=== PATIENT | female | born 1940 | race Caucasian/White ===

== ENCOUNTER 2017-06-09 17:27 | Observation (INO) ==
[2017-06-09] MEDS ORDERED: Aspirin 81 MG TAB.CHEW PO ONE (17:38)
--- NOTE | 2017-06-09 17:55 | Emergency Department Note ---
Disposition Clinical Impression: Chest pain, rule out acute myocardial infarction, Chest pain with low risk of acute coronary syndrome Chest pain Qualifiers: Chest pain type: unspecified Qualified Code(s): R07.9 - Chest pain, unspecified Disposition: Admitted As Inpatient Condition: Good Referrals: NONE,PCP [Primary Care Provider] - Time of Disposition: 19:59 Chest Pain HPI - General Stated Complaint: CP// heart hx Time Seen by Provider: 06/09/17 17:28 Source: patient Mode of arrival: ambulatory Limitations: no limitations Vital Signs Reviewed: Yes Nursing Notes Reviewed: Yes - History of Present Illness HPI Narrative: Patient presents to the emergency room with complaint of chest pain and left- sided chest and her neck. Symptoms been present for 2-3 days. She denies any changes in symptoms. She did just have a catheterization completed a stent placed in August. She is concerned about it being her heart again. Denies any recent illnesses no fevers no chills no nausea vomiting or diarrhea. Denies chest pain shortness of breath headache or vision changes prior to the events recently. She is currently taking Xarelto and Plavix. She has a history of A. fib Onset (ago): day(s) Duration: intermittent Onset: during rest Pain Location: substernal, left chest Severity: none Severity scale (1-10): 0 Quality: aching Pain Radiation: neck Improves with: rest Worsens with: nothing Associated symptoms: Reports: nausea Treatments prior to arrival chest pain: aspirin - Related Data Home Medications Medication Instructions Recorded Confirmed Amlodipine Besylate 2.5 mg PO DAILY 05/03/16 08/20/16 Ascorbate Calcium [Vitamin C] 500 mg PO DAILY 05/03/16 08/20/16 Fluticasone Propionate Nasal 50 mcg NS DAILY 05/03/16 08/20/16 [Flonase] Multivit-Min/FA/Lycopen/Lutein 1 each PO DAILY 05/03/16 08/20/16 [Adults 50+ Multivitamin Tablet] [place]-3/Dha/Epa/Fish Oil [Fish Oil 1 each PO DAILY 05/03/16 08/20/16 1,000 mg Softgel] Vitamin E 200 unit PO DAILY 05/03/16 08/20/16 Apixaban [Eliquis] 5 mg PO BID 08/20/16 08/20/16 Metoprolol [Lopressor] 25 mg PO BID 08/20/16 08/20/16 Previous Rx's Medication Instructions Recorded Amoxicillin 500 mg PO BID #20 tablet 11/27/16 Benzonatate [Tessalon] 100 mg PO TID #30 capsule 11/27/16 Montelukast [Singulair] 10 mg PO DAILY #20 tablet 11/27/16 Allergies Allergy/AdvReac Type Severity Reaction Status Date / Time No Known Allergies Allergy Verified 08/19/16 20:01 All systems ED: reviewed and negative except as stated. Review of Systems: As Per HPI Constitutional: Denies: fever, chills, weakness Cardiovascular: Reports: chest pain. Denies: palpitations, dyspnea on exertion , orthopnea, edema Respiratory: Denies: cough, dyspnea, wheezes, hemoptysis Gastrointestinal: Denies: abdominal pain, nausea, vomiting, diarrhea, constipation Genitourinary: Denies: urgency, dysuria, frequency Musculoskeletal: Denies: back pain, neck pain Integumentary: Denies: rash Neurological: Denies: headache Psychiatric: Reports: anxiety Chest Pain PMH - Past Medical History Medical history: Reports: arthritis, atrial fibrillation, GERD, hyperlipidemia, hypertension, myocardial infarction, osteoporosis, syncope, other Surgical history: Reports: other (Anal fissure repair. Back surgery. Colonoscopy.) Psychiatric history: Reports: anxiety, depression DUMPER history: Reports: endometriosis - Social History Smoking Status: Never smoker Alcohol use: Reports: none Drug use: Reports: none Physical Exam - General Limitations: no limitations General appearance: alert, in no apparent distress - Neck Neck exam: Present: normal inspection, full ROM, trachea midline. Absent: tenderness, meningismus, lymphadenopathy - Chest Chest inspection: Present: normal inspection, symmetric chest wall rise. Absent : tenderness - Respiratory Respiratory exam: Present: normal lung sounds bilaterally. Absent: respiratory distress, wheezes, accessory muscle use - Cardiovascular Cardiovascular exam: Present: regular rate, normal rhythm, normal heart sounds - Abdominal Exam Abdominal exam: Present: soft, Non-Tender, normal bowel sounds. Absent: tenderness, distention, guarding, rebound, rigidity - Extremities Exam Extremities exam: Present: normal inspection, full ROM, normal capillary refill. Absent: tenderness - Back Exam Back exam: Present: normal inspection - Neurological Exam Neurological exam: Present: alert, oriented X3, CN II-XII intact, normal gait - Skin Skin exam: Present: warm, dry, intact, normal color Course Course Narrative: Patient seen and examined the time of arrival. See history of present illness. 77-year-old female presents emergency room with chest pain radiating up the left side of her neck. Symptoms of been present for approximately 2-3 days. Symptoms are completely resolved on presentation here to the emergency room. She has not taking anything to help with the symptoms. She takes her daily aspirin Plavix and Xarelto home. She has known A. fib. Patient denies any recent trauma illnesses, fevers chills nausea vomiting or diarrhea, headache or vision change. Her main complaint on presentation his chest discomfort radiating to the neck. She did have recent catheterization in August of last year. She had a stent placed at that time and an LAD lesion. Patient has not had any issues or consultation since that event. She presents here today with what she describes is similar presentation of symptoms from her previous heart attack. Patient otherwise is in no specific distress she denies pain at this time. She will be treated prophylactically with aspirin. And then have cardiac evaluation completed including EKG chest x-ray labs as well as liver function testing and lipase secondary to what she described as some intermittent nausea. She denies any vomiting or diarrhea at this point. Fluids to be provided as needed and nausea medication as needed. Disposition pending this treatment course. Physical exam is otherwise benign. Patient speaks in full sentences does not appear to be in any respiratory distress lungs are clear heart is regular abdomen soft nontender nondistended no guarding no rigidity. No peritoneal symptoms. She moves all 4 extremities without any complication she has good pulses she has good capillary refill. Patient is alert and oriented 3 showing no cranial nerve deficits and no signs of acute neurologic deficits at this time. Disposition pending treatment course. - Reevaluation(s) Reevaluation #1: Patient is still symptom-free here in the emergency room. She has not been provided any intervention. Again she has had the symptoms for 3 days at this time. She has had no other complaints or issues at home. She denies any chest pain at this point. Troponin is 0.00. EKG shows stable rhythm with no acute morphology changes. She does have left ventricular hypertrophy that is progressing from previous but otherwise no acute changes from 08/20/16. Patient is completely symptom free. Disposition pending evaluation. Will continue to monitor here as labs results. We will discuss admission for treatment course. Time: 19:06 Reevaluation #2: Patient is still chest pain free. She did describe another episode of discomfort in the side of her face. Repeat EKG ordered at this time. The laboratory workup and evaluation here is completely negative. Patient was placed onto the on-call senior it security analyst Dr. Wojciech Arango. We are waiting for him to call back to discuss the patient's presentation and give recommendations for admission for follow-up as an outpatient. Time: 19:30 Reevaluation #3: Patient was discussed with the senior it security analyst after N[facility]. His recommendation based on story and the symptom is to have the patient admitted. We will complete the treatment course and intervention this time. No other issues noted at this point. Patient is still chest pain-free. EKG to be completed prior to admission process. Hospitalist was paged at this time Time: 19:39 Additional Reevaluation(s): Patient discussed with the hospitalist Dr. mcdowell. I reviewed the presentation symptoms medical intervention and history in detail. No other recommendations for them at this time. Patient be brought in for trimming of troponins and cardiac evaluation tomorrow morning. Patient is otherwise stable Vital Signs Temperature 98.1 F 06/09/17 17:32 Pulse Rate 76 06/09/17 17:32 Respiratory Rate 18 06/09/17 17:32 Blood Pressure 176/85 06/09/17 17:32 O2 Sat by Pulse Oximetry 97 06/09/17 17:32 Temperature 98.1 F 06/09/17 17:32 Pulse Rate 68 06/09/17 18:36 Respiratory Rate 18 06/09/17 18:36 Blood Pressure 148/75 06/09/17 18:36 O2 Sat by Pulse Oximetry 97 06/09/17 18:36 Oxygen Delivery Oxygen Delivery Room Air Chest Pain - MDM Narrative Medical decision making narrative: chest pain - Medical Records Medical records reviewed: Yes I reviewed the patient's medical records. - Lab Data Lab results reviewed: Yes I reviewed the patient's lab results. Result diagrams: 06/09/17 18:00 06/09/17 18:00 Lab Results 06/09/17 06/09/17 06/09/17 Range/Units 18:00 18:00 18:00 WBC (4.3-11.1) K/mcL RBC (3.82-4.97) M/mcL Hgb (11.5-15.4) g/dL Hct (35.3-44.9) % MCV (83.0-100.0) fL MCH (28.0-33.3) pg MCHC (31.6-35.5) g/dL RDW (11.5-14.5) % Plt Count (140-400) K/mcL MPV (9.4-12.4) fL Immature Gran % (0-4) % Seg Neutrophils % % Lymphocytes % % Monocytes % % Eosinophils % % Basophils % % Neutrophils # (1.6-8.9) K/mcL Lymphocytes # (0.6-4.6) K/mcL Monocytes # (0.0-1.3) K/mcL Eosinophils # (0.0-0.6) K/mcL Basophils # (0.0-0.2) K/mcL PT 13.9 H (9.4-12.1) Seconds INR 1.3 APTT 36.5 H (26.0-36.0) Seconds Sodium (136-145) mEq/L Potassium (3.5-4.5) mEq/L Chloride (98-109) mEq/L Carbon Dioxide (19-29) mEq/L BUN (7-20) mg/dL Creatinine (0.57-1.11) mg/dL Est GFR ( Amer) (> 60) Est GFR (Non-Af Amer) (> 60) BUN/Creatinine Ratio (6-26) Glucose (70-99) mg/dL Calculated Osmolality (280-300) Calcium (8.6-10.8) mg/dL Total Bilirubin < 0.3 (0.2-1.2) mg/dL Direct Bilirubin 0.1 (0.0-0.5) mg/dL Indirect Bilirubin 0.2 (0.0-1.2) mg/dL AST 23 (5-34) Units/L ALT 23 (0-55) Units/L Alkaline Phosphatase 108 (38-126) Units/L Troponin I (0-0.03) ng/mL B-Natriuretic Peptide 69 (0-100) pg/mL Serum Total Protein 7.2 (6.0-8.3) g/dL Albumin 3.7 (3.5-5.0) g/dL Globulin 3.5 (2.4-3.5) g/dL Albumin/Globulin Ratio 1.1 (1.1-2.2) Lipase 31 (8-78) Units/L Urine Color (Yellow) Urine Clarity (Clear) Urine pH (5.0-8.0) pH Units Ur Specific [place] (1.010-1.025) Urine Protein (Neg-Trace) mg/dL Urine Glucose (UA) (Normal) mg/dL Urine Ketones (Negative) mg/dL Urine Blood (Negative) Urine Nitrite (Negative) Urine Bilirubin (Negative) Urine Urobilinogen (Normal) mg/dL Ur Leukocyte Esterase (Negative) Ur Culture Indicated? (NO) 06/09/17 06/09/17 06/09/17 Range/Units 18:00 18:00 18:00 WBC 5.7 (4.3-11.1) K/mcL RBC 4.86 (3.82-4.97) M/mcL Hgb 13.6 (11.5-15.4) g/dL Hct 42.7 (35.3-44.9) % MCV 87.9 (83.0-100.0) fL MCH 28.0 (28.0-33.3) pg MCHC 31.9 (31.6-35.5) g/dL RDW 13.1 (11.5-14.5) % Plt Count 184 (140-400) K/mcL MPV 11.3 (9.4-12.4) fL Immature Gran % 0.2 (0-4) % Seg Neutrophils % 65.3 % Lymphocytes % 21.9 % Monocytes % 9.8 % Eosinophils % 2.3 % Basophils % 0.5 % Neutrophils # 3.7 (1.6-8.9) K/mcL Lymphocytes # 1.3 (0.6-4.6) K/mcL Monocytes # 0.6 (0.0-1.3) K/mcL Eosinophils # 0.1 (0.0-0.6) K/mcL Basophils # 0.0 (0.0-0.2) K/mcL PT (9.4-12.1) Seconds INR APTT (26.0-36.0) Seconds Sodium 142 (136-145) mEq/L Potassium 3.5 (3.5-4.5) mEq/L Chloride 104 (98-109) mEq/L Carbon Dioxide 29 (19-29) mEq/L BUN 17 (7-20) mg/dL Creatinine 0.87 (0.57-1.11) mg/dL Est GFR ( Amer) > 60 (> 60) Est GFR (Non-Af Amer) > 60 (> 60) BUN/Creatinine Ratio 20 (6-26) Glucose 129 H (70-99) mg/dL Calculated Osmolality 297 (280-300) Calcium 9.4 (8.6-10.8) mg/dL Total Bilirubin (0.2-1.2) mg/dL Direct Bilirubin (0.0-0.5) mg/dL Indirect Bilirubin (0.0-1.2) mg/dL AST (5-34) Units/L ALT (0-55) Units/L Alkaline Phosphatase (38-126) Units/L Troponin I 0.00 (0-0.03) ng/mL B-Natriuretic Peptide (0-100) pg/mL Serum Total Protein (6.0-8.3) g/dL Albumin (3.5-5.0) g/dL Globulin (2.4-3.5) g/dL Albumin/Globulin Ratio (1.1-2.2) Lipase (8-78) Units/L Urine Color (Yellow) Urine Clarity (Clear) Urine pH (5.0-8.0) pH Units Ur Specific [place] (1.010-1.025) Urine Protein (Neg-Trace) mg/dL Urine Glucose (UA) (Normal) mg/dL Urine Ketones (Negative) mg/dL Urine Blood (Negative) Urine Nitrite (Negative) Urine Bilirubin (Negative) Urine Urobilinogen (Normal) mg/dL Ur Leukocyte Esterase (Negative) Ur Culture Indicated? (NO) 06/09/17 Range/Units 18:23 WBC (4.3-11.1) K/mcL RBC (3.82-4.97) M/mcL Hgb (11.5-15.4) g/dL Hct (35.3-44.9) % MCV (83.0-100.0) fL MCH (28.0-33.3) pg MCHC (31.6-35.5) g/dL RDW (11.5-14.5) % Plt Count (140-400) K/mcL MPV (9.4-12.4) fL Immature Gran % (0-4) % Seg Neutrophils % % Lymphocytes % % Monocytes % % Eosinophils % % Basophils % % Neutrophils # (1.6-8.9) K/mcL Lymphocytes # (0.6-4.6) K/mcL Monocytes # (0.0-1.3) K/mcL Eosinophils # (0.0-0.6) K/mcL Basophils # (0.0-0.2) K/mcL PT (9.4-12.1) Seconds INR APTT (26.0-36.0) Seconds Sodium (136-145) mEq/L Potassium (3.5-4.5) mEq/L Chloride (98-109) mEq/L Carbon Dioxide (19-29) mEq/L BUN (7-20) mg/dL Creatinine (0.57-1.11) mg/dL Est GFR ( Amer) (> 60) Est GFR (Non-Af Amer) (> 60) BUN/Creatinine Ratio (6-26) Glucose (70-99) mg/dL Calculated Osmolality (280-300) Calcium (8.6-10.8) mg/dL Total Bilirubin (0.2-1.2) mg/dL Direct Bilirubin (0.0-0.5) mg/dL Indirect Bilirubin (0.0-1.2) mg/dL AST (5-34) Units/L ALT (0-55) Units/L Alkaline Phosphatase (38-126) Units/L Troponin I (0-0.03) ng/mL B-Natriuretic Peptide (0-100) pg/mL Serum Total Protein (6.0-8.3) g/dL Albumin (3.5-5.0) g/dL Globulin (2.4-3.5) g/dL Albumin/Globulin Ratio (1.1-2.2) Lipase (8-78) Units/L Urine Color Yellow (Yellow) Urine Clarity Clear (Clear) Urine pH 6.5 (5.0-8.0) pH Units Ur Specific [place] 1.010 (1.010-1.025) Urine Protein Negative (Neg-Trace) mg/dL Urine Glucose (UA) Normal (Normal) mg/dL Urine Ketones Negative (Negative) mg/dL Urine Blood Negative (Negative) Urine Nitrite Negative (Negative) Urine Bilirubin Negative (Negative) Urine Urobilinogen Normal (Normal) mg/dL Ur Leukocyte Esterase Negative (Negative) Ur Culture Indicated? NO (NO) - Radiology Data Radiology results reviewed: Yes I reviewed the patient's radiology results. cxr is neg for infection - EKG Data EKG attestation: Yes I reviewed and interpreted this EKG. EKG shows normal: sinus rhythm, intervals, QRS complexes, ST-T waves Rate: normal [place]/QRS: left axis deviation Voltage: c/w LVH When compared to previous EKG there are: no significant changes Interpretation: no acute changes, unchanged when compared to prior tracing (date ) (08/20/16), other (Repeat EKG shows identical morphology. No changes at this time) Heart Score - Score History: Moderately Suspicious EKG: Normal Age: Greater than 65 Risk Factors: Equal/Greater than 3 risk factor or history of atherosclerotic disease Troponin: Less than normal limit HEART Score Total: 5
[2017-06-09 18:29] LABS: Basophils % 0.5 %; Eosinophils # 0.1 K/mcL (0.0-0.6); Eosinophils % 2.3 %; Hematocrit 42.7 % (35.3-44.9); Hemoglobin 13.6 g/dL (11.5-15.4); Immature Granulocytes % 0.2 % (0-4); Lymphocytes # 1.3 K/mcL (0.6-4.6); Lymphocytes % 21.9 %; Mean Corpuscular HGB Conc 31.9 g/dL (31.6-35.5); Mean Corpuscular Volume 87.9 fL (83.0-100.0); Mean Platelet Volume 11.3 fL (9.4-12.4); Monocytes # 0.6 K/mcL (0.0-1.3); Monocytes % 9.8 %; Neutrophils # 3.7 K/mcL (1.6-8.9); Platelet Count 184 K/mcL (140-400); Red Blood Count 4.86 M/mcL (3.82-4.97); Red Cell Distribution Width 13.1 % (11.5-14.5); Segmented Neutrophils % 65.3 %
[2017-06-09 18:29] LABS: Bilirubin,Urine Negative (Negative); Blood,Urine Negative (Negative); Clarity,Urine Clear (Clear); Color,Urine Yellow (Yellow); Glucose,Urine (UA) Normal (Normal); Ketones,Urine Negative (Negative); Leukocyte Esterase,Urine Negative (Negative); Nitrite,Urine Negative (Negative); PH,Urine 6.5 pH Units (5.0-8.0); Protein,Urine Negative (Neg-Trace); Urobilinogen,Urine Normal (Normal)
[2017-06-09 18:30] LABS: INR 1.3; Prothrombin Time 13.9 Seconds (9.4-12.1)
[2017-06-09 18:33] LABS: Activated Partial Thrombo Time 36.5 Seconds (26.0-36.0)
[2017-06-09 18:43] LABS: Alanine Aminotransferase 23 Units/L (0-55); Albumin 3.7 g/dL (3.5-5.0); Albumin/Globulin Ratio 1.1 (1.1-2.2); Alkaline Phosphatase 108 Units/L (38-126); Aspartate Amino Transferase 23 Units/L (5-34); Bilirubin,Direct 0.1 mg/dL (0.0-0.5); Bilirubin,Indirect 0.2 mg/dL (0.0-1.2); Bilirubin,Total < 0.3 mg/dL (0.2-1.2); Globulin 3.5 g/dL (2.4-3.5); Lipase 31 Units/L (8-78); Total Protein 7.2 g/dL (6.0-8.3)
[2017-06-09 18:55] LABS: BUN/Creatinine Ratio 20 (6-26); Blood Urea Nitrogen 17 mg/dL (7-20); Calcium 9.4 mg/dL (8.6-10.8); Carbon Dioxide 29 mEq/L (19-29); Chloride 104 mEq/L (98-109); Glucose 129 mg/dL (70-99); Osmolality,Calculated 297 (280-300); Potassium 3.5 mEq/L (3.5-4.5); Sodium 142 mEq/L (136-145); eGFR For African Americans > 60 (> 60); eGFR For Non-African Americans > 60 (> 60)
[2017-06-09] MEDS ORDERED: Nitroglycerin 0.4 MG TAB.SUBL SL PRN (21:05)
[2017-06-09] MEDS ORDERED: Ipratropium/Albuterol Neb 3 ML IH PRN (21:05)
[2017-06-09] MEDS ORDERED: Ondansetron 4 MG/2 ML VIAL IVP PRN (21:07)
[2017-06-09] MEDS ORDERED: Acetaminophen 325 MG TABLET PO PRN (21:07)
[2017-06-09] MEDS ORDERED: *HR* Morphine 2 MG/ML SYRINGE IVP PRN (21:07)
[2017-06-09] MEDS ORDERED: Naloxone 0.4 MG/ML INJ IVP PRN (21:07)
--- NOTE | 2017-06-09 21:13 | Internal Med History&Physical ---
Date of Encounter: 06/09/17 Time of Encounter: 21:11 Assessment and Plan (1) Chest pain Current visit: Yes Status: Acute With history of CAD status post stents Continue aspirin, Plavix, metoprolol, statin, nitroglycerin as needed Order limited echocardiogram and schedule a stress test in the morning, follow troponins, telemetry Cardiology was consulted by the ER physician Check lipid panel Omeprazole for GI prophylaxis and Xarelto for DVT prophylaxis, the patient will be admitted for observation. Full code. Time spent this admission 40 minutes Qualifiers: Chest pain type: precordial pain Qualified Code(s): R07.2 - Precordial pain (2) Paroxysmal atrial fibrillation Current visit: No Status: Acute Continue Xarelto and metoprolol (3) Dyslipidemia Current visit: No Status: Chronic (4) Hypertension Current visit: No Status: Chronic Accelerated hypertension, may use hydralazine IV as needed Qualifiers: Hypertension type: essential hypertension Qualified Code(s): I10 - Essential (primary) hypertension Internal Medicine - H&P: HPI Chief complaint: Chest pain Admitted From: Emergency Dept History of present illness: Ms. Pena is a 77 year old female with a past medical history of hypertension, hyperlipidemia, CAD status post drug-eluting stent in the mid LAD back in August 2016, paroxysmal atrial fibrillation used to be on Eliquis but is currently on Xarelto. The patient came complaining of left sided chest pain that started 3 days ago and got worse earlier today at 4:30 PM and lasted for about one half hour, the patient is a still having some discomfort for about 4 out of 10 in intensity at times. Has some nausea, became diaphoretic and says that this pain was very similar to the prior event that she had in August. Troponin and EKG did not show any evidence of ischemia, chest x-ray is normal. Dr. Arango was called by the ER physician, admission was requested. Patient denies any other complaints at the moment Past Med Surg Social Fam HX - Past Medical History Medical history: arthritis, atrial fibrillation (Paroxysmal currently on Xarelto ), coronary artery disease (Status post a drug-eluting stent in the mid LAD August 2016), GERD, hyperlipidemia, hypertension, myocardial infarction, osteoporosis, syncope, other (Osteoporosis, endometriosis, spinal stenosis, mild diastolic dysfunction last echocardiogram from December 2016 shows an ejection fraction of 60%) Psychiatric history: anxiety, depression - Past Surgical History Surgical History: other (Anal fissure repair. Back surgery. Colonoscopy. Cardiac catheterization) - Social History Smoking Status: Never smoker Smokeless Tobacco Status: No Alcohol use: none Drug use: none - Family History Mother Living Status: Hx Family Cardiac Disorders: Yes Father Living Status: Hx Family Cardiac Disorders: Yes - Additional Family History Additional family history: Mother with cardiomegaly, father with CHF and alcoholism Internal Medicine - H&P: Meds Amlodipine Besylate 2.5 mg PO DAILY 05/03/16 [History] Ascorbate Calcium [Vitamin C] 500 mg PO DAILY 05/03/16 [History] Fluticasone Propionate Nasal [Flonase] 50 mcg NS DAILY 05/03/16 [History] Multivit-Min/FA/Lycopen/Lutein [Adults 50+ Multivitamin Tablet] 1 each PO DAILY 05/03/16 [History] [place]-3/Dha/Epa/Fish Oil [Fish Oil 1,000 mg Softgel] 1 each PO DAILY 05/03/16 [ History] Vitamin E 200 unit PO DAILY 05/03/16 [History] Apixaban [Eliquis] 5 mg PO BID 08/20/16 [History] Metoprolol [Lopressor] 25 mg PO BID 08/20/16 [History] Amoxicillin 500 mg PO BID #20 tablet 11/27/16 [Rx] Benzonatate [Tessalon] 100 mg PO TID #30 capsule 11/27/16 [Rx] Montelukast [Singulair] 10 mg PO DAILY #20 tablet 11/27/16 [Rx] Allergies No Known Allergies Allergy (Verified 08/19/16 20:01) All Systems PM: A 10-system review of systems was performed and is negative for pertinent findings except as documented above in the HPI. Review of systems: No shortness of breath, no dysuria. Other systems out the 10 reviewed are negative - Constitutional Vitals: Temp Pulse Resp BP Pulse Ox 98.1 F 68 16 154/81 97 06/09/17 17:32 06/09/17 18:36 06/09/17 20:37 06/09/17 20:37 06/09/17 18:36 General appearance: Present: A&O X 3 - Head Head exam: Present: atraumatic, normocephalic - Eye Eye exam: Present: PERRL, conjuntiva pink, sclera anicteric Pupils: Present: PERRL - Neck Neck exam general surgery: Present: supple, trachea midline. Absent: lymphadenopathy - Respiratory Respiratory exam: Present: CTAB. Absent: accessory muscle use, rales, rhonchi, wheezes - Cardiovascular Cardiovascular exam: Present: RRR, +S1, +S2. Absent: diastolic murmur, gallop, rubs, systolic murmur - GI/Abdominal GI/Abdominal exam: Present: normal bowel sounds, soft, no peritoneal signs. Absent: distended, tenderness - Extremities Exam Extremities exam: Present: warm, radial pulses palpable and symetrical. Absent : calf tenderness, cyanotic, pedal edema - Neurological Exam Neurological exam: Present: CN II-XII intact, oriented X3, no focal deficits. Absent: pronater drift, facial droop, speech deficit - Skin Skin exam: Present: dry, intact Internal Med - H&P Results - Labs CBC & Chem 7: 06/09/17 18:00 06/09/17 18:00
[2017-06-09] MEDS ORDERED: 0.9 % Sodium Chloride 1,000 ML IVC SCH (21:15)
[2017-06-09] MEDS ORDERED: APIXABAN 5 MG TABLET PO SCH (21:15)
[2017-06-09] MEDS: Aspirin Enteric Coated 81 MG Tablet PO SCH (23:11)
[2017-06-09] MEDS ORDERED: Melatonin 3 MG TABLET PO SCH (23:55)
[2017-06-10 04:10] LABS: Hematocrit 42.3 % (35.3-44.9); Hemoglobin 13.3 g/dL (11.5-15.4); Mean Corpuscular HGB Conc 31.4 g/dL (31.6-35.5); Mean Corpuscular Hemoglobin 27.8 pg (28.0-33.3); Mean Corpuscular Volume 88.3 fL (83.0-100.0); Mean Platelet Volume 11.5 fL (9.4-12.4); Platelet Count 174 K/mcL (140-400); Red Blood Count 4.79 M/mcL (3.82-4.97); Red Cell Distribution Width 13.2 % (11.5-14.5)
[2017-06-10 04:34] LABS: BUN/Creatinine Ratio 22 (6-26); Blood Urea Nitrogen 18 mg/dL (7-20); Calcium 9.4 mg/dL (8.6-10.8); Carbon Dioxide 31 mEq/L (19-29); Chloride 107 mEq/L (98-109); Chol/HDL Ratio 4.2 (0-4.9); Cholesterol 162 mg/dL (< 200); Glucose 100 mg/dL (70-99); HDL Cholesterol 39 mg/dL (40-59); LDL Cholesterol,Calculated 99 mg/dL (0-99); Osmolality,Calculated 304 (280-300); Potassium 3.9 mEq/L (3.5-4.5); Sodium 146 mEq/L (136-145); Triglycerides 119 mg/dL (< 150); eGFR For African Americans > 60 (> 60); eGFR For Non-African Americans > 60 (> 60)
[2017-06-10] MEDS ORDERED: Regadenoson 0.4 MG/5 ML SYRINGE IVP ONE (06:22)
[2017-06-10] MEDS: Aspirin Enteric Coated 81 MG Tablet PO SCH (09:43)
[2017-06-10 11:11] VITALS: BP 146/70
--- NOTE | 2017-06-10 12:22 | Discharge Summary ---
Date of Encounter: 06/10/17 Time of Encounter: 09:50 - Discharge Diagnosis (1) Chest pain Priority: Primary Status: Acute Comments: Pt denies chest pain today, other than with stress test. Chest pain had resolved by the time she arrived back at the floor. Pt initally reported nausea and diaphoresis, these have resolved. Chest xray was negative, pain is not reproducible with movement or palpation. Troponins were negative. EKG NSR, rate 61, NV 196, QRS 103, QTc 414. No ST elevation. Stress test negative, echo shows LVEF preserved. Pt had LHC with CECILIA in mid LAD in August,. She is currently on Xarelto and ASA. Chest xray negative. Pt will follow up with cardiology in clinic. Qualifiers: Chest pain type: unspecified Qualified Code(s): R07.9 - Chest pain, unspecified (2) Hypertension Priority: Secondary Status: Chronic Comments: Chronic. Continue home medications. Qualifiers: Hypertension type: essential hypertension Qualified Code(s): I10 - Essential (primary) hypertension (3) PAF (paroxysmal atrial fibrillation) Priority: Secondary Status: Acute Comments: EKG sinus rhythm. Continue Xarelto and Metoprolol. (4) DVT prophylaxis Priority: Secondary Status: Acute Comments: Pt on Xarelto. - Discharge Medications Home Medications: Amlodipine Besylate 2.5 mg PO HS 05/03/16 [History] Ascorbate Calcium [Vitamin C] 500 mg PO DAILY 05/03/16 [History] Fluticasone Propionate Nasal [Flonase] 50 mcg NS DAILY 05/03/16 [History] Multivit-Min/FA/Lycopen/Lutein [Adults 50+ Multivitamin Tablet] 1 each PO DAILY 05/03/16 [History] [place]-3/Dha/Epa/Fish Oil [Fish Oil 1,000 mg Softgel] 1 each PO DAILY 05/03/16 [ History] Vitamin E 200 unit PO DAILY 05/03/16 [History] Metoprolol [Lopressor] 25 mg PO BID 08/20/16 [History] Aspirin [Lo-Dose Aspirin EC] 81 mg PO DAILY 06/09/17 [History] Clopidogrel [Plavix] 75 mg PO DAILY 06/09/17 [History] Melatonin [Melatin] 3 mg PO HS 06/09/17 [History] Rivaroxaban [Xarelto] 20 mg PO DAILY 06/09/17 [History] Atorvastatin Calcium [Lipitor] 20 mg PO DAILY 06/10/17 [History] Allergies/Adverse Reactions: Allergies No Known Allergies Allergy (Verified 08/19/16 20:01) Procedures/tests Complete & Pending: Procedures Performed prior 72 hours Category Date Time Status NM lucia perf SPECT multi [NM] Routine Exams 06/09/17 06:14 Taken EV limited echocardiogram Routine Y 06/10/17 08:30 Completed SP pharm nuclear stress Routine Y 06/09/17 21:07 Completed Date of admission: 06/09/17 20:05 Primary care physician: Kaylee Katz Discharging clinician: Catrachita Tolliver Anticipated date of discharge: 06/10/17 - Patient Status Disposition: Home, Self-Care Condition: Good Functional capacity at discharge: independent ambulation Overall status at discharge: patient is back to baseline - Discharge Instructions Follow Up With: Davi Lyon DO [Primary Care Provider] - Forms: ED Satisfaction Letter Additional Instructions: Follow up with your PCP in the next week to 10 days for a follow up visit. If your chest pain returns, return to the ER immediately. Resume your normal home medications Follow up with cardiology in the office as scheduled. - Diet and Activity Activity: increase activity as tolerated Diet: advance to your usual diet Hospital course: Ms. Pena is a 77 year old female straight dyslipidemia, hypertension, LHC with CECILIA in August,, paroxysmal A. fib. Patient presented to the emergency department with left-sided chest pain that started 3 days prior to arrival became worse immediately prior to admission and lasted for about 30 minutes. She was still having some chest discomfort at time of admission, as well as some nausea and diaphoresis. Patient did have some chest pain during the beginning of the stress test, she did not have any chest pain by the time she arrived back to the room. She does not have chest pain currently. Physical exam is unremarkable. Chest xray is negative for any acute processes, troponins were negative x 3, pharmacologic stress was negative for ischemia or infarct with a gaited EF of greater than 70%. Limited echo done today also shows LVEF of 65% with normal LV chamber size and function. All wall segments showed normal motion. Patient had a left heart catheter in August, a drug-eluting stent was placed in mid LAD. Patient will continue her Zaroxolyn aspirin at home. Her EKG showed normal sinus rhythm without ST changes. She has a history of paroxysmal A. fib and will continue metoprolol. Her vital signs have been within normal limits since returned to the unit, her labs are within normal limits. She denies chest pain or any complaints. She denies need for medication refills. Patient is stable and appropriate for discharge. - Time Spent with Patient Total time spent providing and/or coordinating discharge services: Less than 30 minutes - Constitutional Vitals: Temp Pulse Resp BP Pulse Ox 97.6 F 67 14 146/70 98 06/10/17 11:11 06/10/17 11:11 06/10/17 11:11 06/10/17 11:11 06/10/17 11:11 General appearance: Present: cooperative, A&O X 3, pleasant, no acute distress, answers questions appropriately - Head Head exam: Present: normal inspection - Eye Eye exam: Present: normal appearance, conjuntiva pink - ENT ENT exam: Present: mucous membranes moist, normal exam, normal external ear exam - Neck Neck exam general surgery: Present: normal inspection. Absent: lymphadenopathy , tenderness - Respiratory Respiratory exam: Present: CTAB. Absent: chest wall tenderness, rales, respiratory distress, rhonchi, stridor, wheezes - Cardiovascular Cardiovascular exam: Present: JVD, +S1, +S2. Absent: clicks, diastolic murmur, gallop, systolic murmur - GI/Abdominal GI/Abdominal exam: Present: normal bowel sounds, soft. Absent: distended, hepatomegaly, tenderness - Extremities Exam Extremities exam: Present: normal inspection, warm, radial pulses palpable and symetrical. Absent: calf tenderness, pedal edema, tenderness - Neurological Exam Neurological exam: Present: alert, oriented X3, strengths equal and symetr throughout. Absent: facial droop, speech deficit - Skin Skin exam: Present: dry, intact, normal color, warm. Absent: rash, urticaria
--- NOTE | 2017-06-10 15:24 | Electrocardiograph Report ---
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
--- NOTE | 2017-06-10 15:28 | Nuclear Medicine Stress Report ---
Low Level Regadenoson Name: Shauna Pena Date of Study: 06/10/2017 Date: 1940 Ht: 64.0 in Medical Record#: [id number] Age: 77 Wt: 157.0 lb Gender: Female Order #: [id number] Location: [facility] Room: [facility] Supervising Provider: Neftali Collins CNP Reading Physician: Rex Us DO, MELCHOR, BIR TATUM Ordering Physician: Catrachita Tolliver CNP Primary Care Physician: Davi Lyon DO Stress Technologist: Jennifer Stack, JOB RECRUITER, CPFT Technical Agronomist: Anderson Jacobson Indications: Coronary Artery Disease, Chest Pain Impression: Low level exercise/ pharmacologic stress ECG is negative for ischemia at level of heart rate achieved. Chest discomfort reported during stress. Gated EF > 70%. Perfusion imaging was negative for ischemia or infarct. History: Hypertension Prior PCI Stress Test Summary: Stress Test Type: Low level pharmacologic Regadenoson 0.4mg/5ml given IV Baseline Information: Initial Heart Rate: 65 Blood Pressure: 144/68 Stress Information: Stress Time: 4 min 00 sec Test Terminated Due to (primary): As per protocol Maximum Blood Pressure: 148/68 Maximum Heart Rate: 116 Percent Maximum Heart Rate Achieved: 80 Double Product: 17,168 METS Reached: 2.1 Symptoms: Chest pain Nuclear Summary: SPECT myocardial perfusion imaging using Tc99m Sestamibi given intravenously was performed at rest and following cardiac stress testing. The resting images were obtained following initial dose of 10.7 mCi. Following stress an additional dose of 33.6 mCi was given at peak exercise or 30 seconds post regadenoson infusion. Medication Given: Time Medication Dose Units Route Findings: Stress Note * Resting ECG demonstrated normal sinus rhythm. * Brief episode of SVT noted while at rest. * Low level exercise/ pharmacologic stress ECG is negative for ischemia at level of heart rate achieved. * Occasional PVCs noted during stress. * Chest discomfort reported during stress. * Normal hemodynamic responses to low level exercise plus pharmacologic stress. Study Quality * Study quality is good. Gated EF > 70% * Gated EF > 70%. Left Ventricle * The left ventricle is not dilated. LVEDV = 48 mL. NORMALS * Normal wall motion. * Normal Segmental Perfusion in rest. * Normal segmental perfusion in stress. TID * No evidence of transient ischemic dilatation. TID ratio = 1.00. Lung Uptake * There is no evidence of increase lung uptake. Updated by Rex Us DO, FACBlaine, RC, BRI on 06/10/2017 10:56:34 AM electronically signed on 06/10/2017 10:57:54 AM with status of Final
[2017-06-10] MEDS ORDERED: *HR* Rivaroxaban 10 MG TABLET PO SCH (17:00)
--- NOTE | 2017-06-10 20:43 | Electrocardiograph Report ---
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
[2017-06-10] MEDS ORDERED: Melatonin 3 MG TABLET PO SCH (21:00)
== END 2017-06-10 13:50 | disposition home or self-care (01) ==
LOC: 3BNU 17:27 → EMEROO 17:27 → 3BNU 20:30
PROVIDERS: ADMIT Hospitalist; ATTEND Registered Nurse

== ENCOUNTER 2017-11-26 13:54 | Observation (INO) ==
[2017-11-26 14:48] LABS: Basophils % 0.5 %; Eosinophils # 0.1 K/mcL (0.0-0.6); Eosinophils % 1.3 %; Hematocrit 43.1 % (35.3-44.9); Hemoglobin 14.2 g/dL (11.5-15.4); Immature Granulocytes % 0.3 % (0-4); Lymphocytes # 1.4 K/mcL (0.6-4.6); Lymphocytes % 18.5 %; Mean Corpuscular HGB Conc 32.9 g/dL (31.6-35.5); Mean Corpuscular Hemoglobin 29.2 pg (28.0-33.3); Mean Corpuscular Volume 88.5 fL (83.0-100.0); Mean Platelet Volume 10.9 fL (9.4-12.4); Monocytes # 0.7 K/mcL (0.0-1.3); Neutrophils # 5.3 K/mcL (1.6-8.9); Platelet Count 199 K/mcL (140-400); Red Blood Count 4.87 M/mcL (3.82-4.97); Red Cell Distribution Width 13.2 % (11.5-14.5); Segmented Neutrophils % 70.4 %
[2017-11-26 14:55] LABS: INR 1.2; Prothrombin Time 13.5 Seconds (9.4-12.1)
[2017-11-26 14:58] LABS: Activated Partial Thrombo Time 39.2 Seconds (26.0-36.0)
[2017-11-26 15:14] LABS: BUN/Creatinine Ratio 27 (6-26); Blood Urea Nitrogen 22 mg/dL (8-23); Calcium 9.6 mg/dL (8.6-10.3); Carbon Dioxide 32 mEq/L (23-29); Chloride 106 mEq/L (98-107); Glucose 116 mg/dL (70-105); Osmolality,Calculated 298 (280-300); Potassium 3.7 mEq/L (3.5-5.1); Sodium 142 mEq/L (136-145); eGFR For African Americans > 60 (> 60); eGFR For Non-African Americans > 60 (> 60)
[2017-11-26] MEDS ORDERED: Aspirin 81 MG TAB.CHEW PO STA (16:48)
[2017-11-26] MEDS ORDERED: Nitroglycerin 0.4 MG TAB.SUBL SL PRN (18:23)
--- NOTE | 2017-11-26 18:46 | Emergency Department Note ---
Disposition Clinical Impression: Chest pain Qualifiers: Chest pain type: unspecified Qualified Code(s): R07.9 - Chest pain, unspecified Disposition: Admitted As Inpatient Condition: Good Chest Pain HPI - General Chief Complaint: ED Chest Pain Stated Complaint: CP/Left shoulder pain for a couple days Time Seen by Provider: 11/26/17 16:36 Source: patient Limitations: no limitations Vital Signs Reviewed: Yes Nursing Notes Reviewed: Yes - History of Present Illness HPI Narrative: Patient presents today for evaluation of chest pain and left arm pain. Patient has a previous history of [place] requiring stent placement in July 2016. The patient states that this pain started several days ago and was associated with what she describes as a stressful event with her friends. Patient is unwilling to go into further details. Patient states that she thought it would pass secondary to coming on with this acute stressor however the chest pain has continued to be present in the middle of her chest worse with exertion as she walks up steps to put away her Laura decorations. Pain radiates to left arm. Patient's symptoms are similar but not as severe as her previous [place]. The patient has had some associated nausea but no diaphoresis. Patient states that since she has been resting in bed most of her pain has gone away. She is mildly hypertensive and will receive a sublingual nitroglycerin as well as aspirin within the emergency department. Patient will need admitted for further evaluation as she does have EKG changes with T-wave changes in the lead 1 and aVL. Severity scale (1-10): 3 - Related Data Home Medications Medication Instructions Recorded Confirmed Amlodipine Besylate 2.5 mg PO HS 05/03/16 11/26/17 Ascorbate Calcium [Vitamin C] 500 mg PO DAILY 05/03/16 11/26/17 Fluticasone Propionate Nasal 50 mcg NS DAILY PRN 05/03/16 11/26/17 [Flonase] Multivit-Min/FA/Lycopen/Lutein 1 each PO DAILY 05/03/16 11/26/17 [Adults 50+ Multivitamin Tablet] [place]-3/Dha/Epa/Fish Oil [Fish Oil 1 each PO DAILY 05/03/16 11/26/17 1,000 mg Softgel] Vitamin E 200 unit PO DAILY 05/03/16 11/26/17 Metoprolol [Lopressor] 25 mg PO BID 08/20/16 11/26/17 Aspirin [Lo-Dose Aspirin EC] 81 mg PO QPM 06/09/17 11/26/17 Melatonin [Melatin] 3 mg PO HS 06/09/17 11/26/17 Rivaroxaban [Xarelto] 20 mg PO DAILY 06/09/17 11/26/17 Atorvastatin Calcium [Lipitor] 20 mg PO MOWEFR 06/10/17 11/26/17 Biotin 1 mg PO DAILY 11/26/17 11/26/17 Cholecalciferol (Vitamin D3) 2,000 unit PO DAILY 11/26/17 11/26/17 [Vitamin D] Allergies Allergy/AdvReac Type Severity Reaction Status Date / Time No Known Allergies Allergy Verified 08/19/16 20:01 Review of Systems: CONSTITUTIONAL: No weight loss, fever, chills, weakness or fatigue. HEENT: Eyes: No visual changes. Ears, Nose, Throat: No hearing loss, difficulty talking or unable to swallow. SKIN: No rash or itching. CARDIOVASCULAR: Chest pain RESPIRATORY: No shortness of breath, cough or sputum. GASTROINTESTINAL: Nausea No anorexia, vomiting or diarrhea. No abdominal pain or blood. GENITOURINARY: No burning on urination or hematuria. NEUROLOGICAL: No headache, dizziness, syncope, paralysis, ataxia, numbness or tingling in the extremities. No change in bowel or bladder control. MUSCULOSKELETAL: No muscle pain, back pain, joint pain or stiffness. 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 - Social History Smoking Status: Never smoker Alcohol use: Reports: none Drug use: Reports: none Physical Exam General: Well appearing, nontoxic, no acute distress Head: Normocephalic Atraumatic Eyes: PERRL, EOMI ENT: Airway patent, no stridor Neck: supple, no meningismus Chest: Lungs clear to auscultation bilateral Cardiac: Regular rate and rhythm, no murmurs, rubs or gallops Abdomen: soft, nontender, nondistended; no guarding, rebound, or tenderness to percussion Musculoskeletal: Calves symmetric, nontender, no palpable cord Skin: No rash, normal skin tone Neuro: Alert and Oriented to person, place, and time; No focal deficit, CN 2-12 symmetric and intact - General Limitations: no limitations General appearance: alert, in no apparent distress Course - Consultations Consultation #1: Discussed with hospitalist; Mariaelena. Patient accepted for admission. Vital Signs Temperature 98.0 F 11/26/17 13:55 Pulse Rate 82 11/26/17 13:55 Respiratory Rate 16 11/26/17 13:55 Blood Pressure 159/83 11/26/17 13:55 O2 Sat by Pulse Oximetry 100 11/26/17 13:55 Temperature 98.0 F 11/26/17 13:55 Pulse Rate 93 11/26/17 19:04 Respiratory Rate 17 11/26/17 19:04 Blood Pressure 172/87 11/26/17 19:04 O2 Sat by Pulse Oximetry 95 11/26/17 19:04 Oxygen Delivery Oxygen Delivery Room Air Chest Pain - Medical Records Medical records reviewed: Yes I reviewed the patient's medical records. - Lab Data Lab results reviewed: Yes I reviewed the patient's lab results. Result diagrams: 11/26/17 14:39 11/26/17 14:39 Lab Results 11/26/17 11/26/17 11/26/17 Range/Units 14:39 14:39 14:39 WBC 7.5 (4.3-11.1) K/mcL RBC 4.87 (3.82-4.97) M/mcL Hgb 14.2 (11.5-15.4) g/dL Hct 43.1 (35.3-44.9) % MCV 88.5 (83.0-100.0) fL MCH 29.2 (28.0-33.3) pg MCHC 32.9 (31.6-35.5) g/dL RDW 13.2 (11.5-14.5) % Plt Count 199 (140-400) K/mcL MPV 10.9 (9.4-12.4) fL Immature Gran % 0.3 (0-4) % Seg Neutrophils % 70.4 % Lymphocytes % 18.5 % Monocytes % 9.0 % Eosinophils % 1.3 % Basophils % 0.5 % Neutrophils # 5.3 (1.6-8.9) K/mcL Lymphocytes # 1.4 (0.6-4.6) K/mcL Monocytes # 0.7 (0.0-1.3) K/mcL Eosinophils # 0.1 (0.0-0.6) K/mcL Basophils # 0.0 (0.0-0.2) K/mcL PT 13.5 H (9.4-12.1) Seconds INR 1.2 APTT 39.2 H (26.0-36.0) Seconds Sodium 142 (136-145) mEq/L Potassium 3.7 (3.5-5.1) mEq/L Chloride 106 (98-107) mEq/L Carbon Dioxide 32 H (23-29) mEq/L BUN 22 (8-23) mg/dL Creatinine 0.82 (0.60-1.20) mg/dL Est GFR ( Amer) > 60 (> 60) Est GFR (Non-Af Amer) > 60 (> 60) BUN/Creatinine Ratio 27 H (6-26) Glucose 116 H (70-105) mg/dL Calculated Osmolality 298 (280-300) Calcium 9.6 (8.6-10.3) mg/dL Troponin I (< 0.04) ng/mL 11/26/17 Range/Units 14:39 WBC (4.3-11.1) K/mcL RBC (3.82-4.97) M/mcL Hgb (11.5-15.4) g/dL Hct (35.3-44.9) % MCV (83.0-100.0) fL MCH (28.0-33.3) pg MCHC (31.6-35.5) g/dL RDW (11.5-14.5) % Plt Count (140-400) K/mcL MPV (9.4-12.4) fL Immature Gran % (0-4) % Seg Neutrophils % % Lymphocytes % % Monocytes % % Eosinophils % % Basophils % % Neutrophils # (1.6-8.9) K/mcL Lymphocytes # (0.6-4.6) K/mcL Monocytes # (0.0-1.3) K/mcL Eosinophils # (0.0-0.6) K/mcL Basophils # (0.0-0.2) K/mcL PT (9.4-12.1) Seconds INR APTT (26.0-36.0) Seconds Sodium (136-145) mEq/L Potassium (3.5-5.1) mEq/L Chloride (98-107) mEq/L Carbon Dioxide (23-29) mEq/L BUN (8-23) mg/dL Creatinine (0.60-1.20) mg/dL Est GFR ( Amer) (> 60) Est GFR (Non-Af Amer) (> 60) BUN/Creatinine Ratio (6-26) Glucose (70-105) mg/dL Calculated Osmolality (280-300) Calcium (8.6-10.3) mg/dL Troponin I < 0.03 (< 0.04) ng/mL - Radiology Data Radiology results reviewed: Yes I reviewed the patient's radiology results. - EKG Data EKG attestation: Yes I reviewed and interpreted this EKG. EKG results narrative: EKG shows sinus rhythm with ventricular rate of 80. HI 180. QRS 89. QTC 389. T-wave inversions in 1 and aVL change from previous of 06/09/17 Attestation Statement - Attestation Attestation: I, Jamal Jiménez DO, examined this patient [id number] and my medical decision-making was reviewed with Delfino Matson DO, Resident Physician. I agree with the documented findings, disposition and treatment plan as described except to the extent set forth below. Please see my progress notes for details. 77-year-old female presents to emergency room with left-sided chest pain radiating into left side of her neck and left arm. This is similar to previous myocardial infarction. Patient denies any other trauma or injury. She denies any recent cardiac catheterization or stenting. Patient has not been ill. Symptoms were present for 3-4 days. Troponin was negative EKG does show sinus rhythm with no acute pathology changes. She does have some inverted T t waves and leads 1 and aVL.. Patient has negative laboratory at this time because of the presentation symptom presentation is concerning for ACS. Patient will be admitted for definitive management. Lungs are clear heart is regular abdomen is soft nontender nondistended with no guarding or rigidity. Patient has no signs of pitting edema in extremities. She has no numbness tingling or paresthesias. She has no neurologic deficits. Patient is otherwise resting comfortable in the bed. Aspirin and nitroglycerin given at this time. Symptomatically controlled to be completed. Patient does not require any further intervention or management at this point. No critical care was applied this patient in the treatment course. Patient will be admitted at this time for definitive management. See detailed documentation exam, medical intervention, medical decision-making and disposition and the resident physician 's note 2024 Patient discussed with the hospitalist what appears to be acute coronary syndrome rule out secondary to the presentation to medical history. No other concerns or issues noted. Patient provided with aspirin and nitroglycerin in the emergency room. Will be admitted at this time for definitive management.
[2017-11-26] MEDS ORDERED: amLODIPine 5 MG TABLET PO STA (19:38)
[2017-11-26] MEDS ORDERED: Adenosine 90 MG/30 ML MLS IV ONE (20:09)
[2017-11-26] MEDS ORDERED: Naloxone 0.4 MG/ML INJ IVP PRN (20:55)
--- NOTE | 2017-11-26 21:07 | Internal Med History&Physical ---
<Tabitha Guy - Last Filed: 11/26/17 21:39> Date of Encounter: 11/26/17 Time of Encounter: 21:07 Assessment and Plan (1) Hypertension Current visit: No Status: Chronic Patient has been experiencing elevated blood pressure however she has been under some stress this week we will continue with metoprolol as well as Norvasc Qualifiers: Hypertension type: essential hypertension Qualified Code(s): I10 - Essential (primary) hypertension (2) Paroxysmal atrial fibrillation Current visit: No Status: Acute Patient has history of atrial fibrillation she is presently in sinus rhythm we will continue with metoprolol for rate control and xarelto anticoagulation (3) Chest pain Current visit: Yes Status: Acute Patient has been experiencing intermittent chest pain for the past 4 days describing it as pressure radiating at times to her left arm with associated symptoms of nausea. Pain is aggravated with exertion and relieved with rest. She does have a past history of CAD she had a drug-eluting stent to mid LAD August 2016. She underwent a nuclear cardiac stress 06/2017 which was negative for any ischemia or infarct. Cardiac echo 06/2017 with EF of 65% with normal LV chamber size and function. First troponin was negative which we will continue to trend 2 continuous cardiac monitoring 3 consult cardiology 4 make patient nothing by mouth after midnight for any possible cardiac interventions in the a.m. 5 continue with aspirin and statin beta juan Qualifiers: Chest pain type: unspecified Qualified Code(s): R07.9 - Chest pain, unspecified (4) DVT prophylaxis Current visit: No Status: Acute Patient is on xarelto Internal Medicine - H&P: HPI Chief complaint: CP Admitted From: Emergency Dept Plans for Post Hospital Care: Home History of present illness: Ms. Pena is a 77 year old female past medical history of atrial fibrillation hypertension hyperlipidemia CAD with CECILIA mid LAD 2015. According to the patient with the past 4 days she has been experiencing mid sternal chest pressure she is to describes as a heaviness at times it will radiate to her left arm. The pain is aggravated with exertion relieved with rest. She has had associated symptoms of nausea however no shortness of breath or diaphoresis. She does admit that over the past few days she has been under some stress her blood pressure has been elevated. She did present to the ER with the above complaints. According to ER records and lab work was unremarkable troponin was negative chest x-ray no acute process EKG did show some mild T-wave inversions in lead 1 and aVL. She did have some mild hypertension she was given metoprolol nitroglycerin and aspirin in the emergency room which did improve her pain. She has been admitted for further workup evaluation. Presently patient is chest pain-free and denies any shortness of breath at this time and she is hemodialysis stable. I did Review this case with Dr. Lopez who agrees with plan. Past Med Surg Social Fam HX - Past Medical History Medical history: arthritis, atrial fibrillation, coronary artery disease, hyperlipidemia, hypertension, myocardial infarction, syncope Psychiatric history: no psych history - Past Surgical History Surgical History: hysterectomy, other - Social History Smoking Status: Never smoker Smokeless Tobacco Status: No Alcohol use: none Drug use: none - Family History Mother Living Status: Hx Family Cardiac Disorders: Yes Father Living Status: Hx Family Cardiac Disorders: Yes Internal Medicine - H&P: Meds Amlodipine Besylate 2.5 mg PO HS 05/03/16 [History] Ascorbate Calcium [Vitamin C] 500 mg PO DAILY 05/03/16 [History] Fluticasone Propionate Nasal [Flonase] 50 mcg NS DAILY PRN 05/03/16 [History] Multivit-Min/FA/Lycopen/Lutein [Adults 50+ Multivitamin Tablet] 1 each PO DAILY 05/03/16 [History] [place]-3/Dha/Epa/Fish Oil [Fish Oil 1,000 mg Softgel] 1 each PO DAILY 05/03/16 [ History] Vitamin E 200 unit PO DAILY 05/03/16 [History] Metoprolol [Lopressor] 25 mg PO BID 08/20/16 [History] Aspirin [Lo-Dose Aspirin EC] 81 mg PO QPM 06/09/17 [History] Melatonin [Melatin] 3 mg PO HS 06/09/17 [History] Rivaroxaban [Xarelto] 20 mg PO DAILY 06/09/17 [History] Atorvastatin Calcium [Lipitor] 20 mg PO MOWEFR 06/10/17 [History] Biotin 1 mg PO DAILY 11/26/17 [History] Cholecalciferol (Vitamin D3) [Vitamin D] 2,000 unit PO DAILY 11/26/17 [History] 3 Allergy/AdvReac Type Severity Reaction Status Date / Time No Known Allergies Allergy Verified 08/19/16 20:01 All Systems PM: A 10-system review of systems was performed and is negative for pertinent findings except as documented above in the HPI. - Constitutional Constitutional: no chills, no fever(s), no night sweats - EENT Eyes: no change in vision, no discharge, no pain, no photophobia Nose, mouth and throat: no dysphagia, no nasal discharge, no neck pain, no sore throat - Cardiovascular Cardiovascular ROS IM: chest pain, no diaphoresis, no lightheadedness, no palpitations, no syncope - Respiratory Respiratory: no cough, no dyspnea, no wheezing, no excessive phlegm production - Gastrointestinal Gastrointestinal: nausea - Genitourinary Genitourinary: no change in urinary stream, no dysuria, no flank pain, no hematuria - Musculoskeletal Musculoskeletal ROS IM: no numbness, no tingling - Integumentary Integumentary IM: no rash, no unusual bruising - Neurological Neurological ROS: no confusion, no convulsions, no focal weakness, no numbness, no tingling, no tremor(s) - Hematologic/Lymphatic Hematologic/Lymphatic: no easy bruising - Constitutional Vitals: Temp Pulse Resp BP Pulse Ox 98.0 F 93 17 166/82 95 11/26/17 13:55 11/26/17 19:04 11/26/17 20:46 11/26/17 20:46 11/26/17 19:04 General appearance: Present: A&O X 3 - Head Head exam: Present: atraumatic, normocephalic - Eye Eye exam: Present: PERRL, conjuntiva pink, sclera anicteric Pupils: Present: PERRL - Neck Neck exam general surgery: Present: supple, trachea midline. Absent: lymphadenopathy - Respiratory Respiratory exam: Present: CTAB. Absent: accessory muscle use, rales, rhonchi, wheezes - Cardiovascular Cardiovascular exam: Present: RRR, +S1, +S2. Absent: diastolic murmur, gallop, rubs, systolic murmur - GI/Abdominal GI/Abdominal exam: Present: normal bowel sounds, soft, no peritoneal signs. Absent: distended, tenderness - Extremities Exam Extremities exam: Present: warm, radial pulses palpable and symmetrical. Absent : calf tenderness, cyanotic, pedal edema - Neurological Exam Neurological exam: Present: CN II-XII intact, oriented X3, no focal deficits. Absent: pronater drift, facial droop, speech deficit - Skin Skin exam: Present: dry, intact Internal Med - H&P Results - Labs CBC & Chem 7: 11/26/17 14:39 11/26/17 14:39 - Diagnostic Studies Chest x-ray Additional comments: Chest X-Ray 11/26/17 14:05 IMPRESSION: No acute process. D/ / Farooq Nguyễn MD / Farooq Nguyễn MD Interpreting Provider: Farooq Nguyễn MD <JohnSantos - Last Filed: 11/27/17 05:16> Date of Encounter: 11/27/17 Internal Medicine - H&P: HPI History of present illness: Ms. Pena is a 77 year old female All Systems PM: A 10-system review of systems was performed and is negative for pertinent findings except as documented above in the HPI. - Constitutional Vitals: Temp Pulse Resp BP Pulse Ox 97.8 F 68 14 153/76 93 11/27/17 03:17 11/27/17 03:17 11/27/17 03:17 11/27/17 03:17 11/27/17 03:17 Internal Med - H&P Results - Labs CBC & Chem 7: 11/27/17 03:40 11/27/17 03:40 Labs: Short CBC 11/27/17 Range/Units 03:40 WBC 6.9 (4.3-11.1) K/mcL Hgb 13.4 (11.5-15.4) g/dL Hct 41.3 (35.3-44.9) % Plt Count 182 (140-400) K/mcL Neutrophils # 4.1 (1.6-8.9) K/mcL BMP 11/27/17 03:40 Sodium 143 Potassium 3.9 Chloride 108 H Carbon Dioxide 31 H BUN 23 Creatinine 0.82 Glucose 92 Calcium 9.0 Cardiac Enzymes 11/26/17 11/27/17 Range/Units 21:28 03:40 Troponin I < 0.03 < 0.03 (< 0.04) ng/mL - Attending Attestation I have seen and examined the patient independently. I have discussed with GROUP WORKER Ms Guy regarding the management plan. Agree with the documentation.
[2017-11-26] MEDS: Melatonin 3 MG TABLET PO SCH (23:04)
[2017-11-26] MEDS: Acetaminophen 325 MG TABLET PO PRN (23:37)
[2017-11-27 03:50] LABS: Basophils % 0.4 %; Eosinophils # 0.1 K/mcL (0.0-0.6); Eosinophils % 1.6 %; Hematocrit 41.3 % (35.3-44.9); Hemoglobin 13.4 g/dL (11.5-15.4); Immature Granulocytes % 0.3 % (0-4); Lymphocytes % 29.2 %; Mean Corpuscular HGB Conc 32.4 g/dL (31.6-35.5); Mean Corpuscular Hemoglobin 28.8 pg (28.0-33.3); Mean Corpuscular Volume 88.8 fL (83.0-100.0); Mean Platelet Volume 11.1 fL (9.4-12.4); Monocytes # 0.6 K/mcL (0.0-1.3); Monocytes % 9.3 %; Neutrophils # 4.1 K/mcL (1.6-8.9); Platelet Count 182 K/mcL (140-400); Red Blood Count 4.65 M/mcL (3.82-4.97); Red Cell Distribution Width 13.2 % (11.5-14.5); Segmented Neutrophils % 59.2 %
[2017-11-27 04:09] LABS: BUN/Creatinine Ratio 28 (6-26); Blood Urea Nitrogen 23 mg/dL (8-23); Carbon Dioxide 31 mEq/L (23-29); Chloride 108 mEq/L (98-107); Chol/HDL Ratio 2.7 (0-4.9); Cholesterol 112 mg/dL (< 200); Glucose 92 mg/dL (70-105); HDL Cholesterol 42 mg/dL (40-59); LDL Cholesterol,Calculated 55 mg/dL (0-99); Magnesium 2.1 mg/dL (1.6-2.6); Osmolality,Calculated 299 (280-300); Potassium 3.9 mEq/L (3.5-5.1); Sodium 143 mEq/L (136-145); Triglycerides 76 mg/dL (< 150); eGFR For African Americans > 60 (> 60); eGFR For Non-African Americans > 60 (> 60)
--- NOTE | 2017-11-27 08:17 | Electrocardiograph Report ---
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
--- NOTE | 2017-11-27 09:11 | Cardiology Consult Note ---
<Kavin Cox R - Last Filed: 11/27/17 09:07> Date of Encounter: 11/27/17 Time of Encounter: 09:07 Assessment and Plan (1) Chest pain Current Visit: Yes Status: Acute Recurrent chest pain concerning for angina--midsternal with radiation to left arm, worse on exertion and relieved with rest. Troponin negative x 3. Initial EKG showed T wave inversions in I and aVL. Repeat EKG this AM shows this has returned to her baseline. Low level stress test 06/2017 negative for ischemia or infarct. Echo 06/2017 EF preserved with normal wall motion. LHC 08/2016 severe single vessel disease s/p PTCA/CECILIA to mLAD. 50% pRCA lesion. Discussed LHC vs medical management/addition of Imdur with close outpt follow. Pt prefers LHC, reasonable given recurrent chest pain admissions. R/B/A discussed and agrees to proceed with [facility] today. Anticoagulated on Xarelto, last dose 11/26/16 AM. Qualifiers: Chest pain type: unspecified Qualified Code(s): R07.9 - Chest pain, unspecified (2) Hypertension Current Visit: Yes Status: Chronic Hypertensive on admission, better controlled this AM. Continue to monitor and adjust antihypertensives as necessary. Qualifiers: Hypertension type: essential hypertension Qualified Code(s): I10 - Essential (primary) hypertension (3) Paroxysmal atrial fibrillation Current Visit: Yes Status: Chronic Known PAF. Anticoagulated on Xarelto. Continue BB. Brief PAF episode noted on tele. (4) CAD (coronary artery disease) Current Visit: Yes Status: Chronic C 08/2016 PTCA/CECILIA to mLAD, 50% pRCA lesion. Continue ASA, Statin, BB. Qualifiers: Coronary Disease-Associated Artery/Lesion type: [place] artery [place] vs. transplanted heart: [place] heart Associated angina: angina presence unspecified Qualified Code(s): I25.10 - Atherosclerotic heart disease of [place] coronary artery without angina pectoris Discussion w patient/family: The assessment and plan as outlined above was discussed with the patient and/or family members who expressed understanding and agreement. All questions were answered. Thank you for involving us in the care of your patient. Please call with any questions. I will discuss all the above with Dr. Tovar and make changes as necessary. History of Present Illness Consult date: 11/27/17 Requesting physician: Santos Lopez Consult reason: Chest pain Chief complaint: Chest pain History of present illness: Ms. Pena is a 77 year old female with PMH of PAF anticoagulated on Xarelto, HTN, HLD, CAD s/p PCI to mid LAD 08/2016. According to the patient over the past week she has been experiencing mid sternal chest pressure she is to describes as a ache that radiates to her left arm. The pain is worsens on exertion and is relieved with rest. She has had associated symptoms of nausea however no shortness of breath or diaphoresis. Initial EKG did show some mild T- wave inversions in lead 1 and aVL, now resolved. Troponins negative x 3. Negative stress test 06/2017. Cardiology consulted for further recommendations. Prior CV testing: Low level stress test 06/10/17: Gated EF >70%, perfusion imaging negative for ischemia or infarct. Limited echo 06/10/17: EF 65%, normal wall motion. LHC 08/11/16: Severe 1 vessel CAD, successful PTCA/CECILIA to mLAD. 50% pRCA. Past Med Surg Social Fam HX - Past Medical History Medical history: arthritis, atrial fibrillation, coronary artery disease, hyperlipidemia, hypertension, myocardial infarction, syncope Psychiatric history: no psych history - Past Surgical History Surgical History: angioplasty/stent, cataract, hysterectomy, other - Social History Smoking Status: Never smoker Smokeless Tobacco Status: No Alcohol use: none Drug use: none - Family History Mother Living Status: Hx Family Cardiac Disorders: Yes Father Living Status: Hx Family Cardiac Disorders: Yes (CONGESTIVE HEART FAILURE.) Medications and Allergies Amlodipine Besylate 2.5 mg PO HS 05/03/16 [History] Ascorbate Calcium [Vitamin C] 500 mg PO DAILY 05/03/16 [History] Fluticasone Propionate Nasal [Flonase] 50 mcg NS DAILY PRN 05/03/16 [History] Multivit-Min/FA/Lycopen/Lutein [Adults 50+ Multivitamin Tablet] 1 each PO DAILY 05/03/16 [History] [place]-3/Dha/Epa/Fish Oil [Fish Oil 1,000 mg Softgel] 1 each PO DAILY 05/03/16 [ History] Vitamin E 200 unit PO DAILY 05/03/16 [History] Metoprolol [Lopressor] 25 mg PO BID 08/20/16 [History] Aspirin [Lo-Dose Aspirin EC] 81 mg PO QPM 06/09/17 [History] Melatonin [Melatin] 3 mg PO HS 06/09/17 [History] Rivaroxaban [Xarelto] 20 mg PO DAILY 06/09/17 [History] Atorvastatin Calcium [Lipitor] 20 mg PO MOWEFR 06/10/17 [History] Biotin 1 mg PO DAILY 11/26/17 [History] Cholecalciferol (Vitamin D3) [Vitamin D] 2,000 unit PO DAILY 11/26/17 [History] 3 Allergy/AdvReac Type Severity Reaction Status Date / Time No Known Allergies Allergy Verified 08/19/16 20:01 All Systems Review: A 10-system review of systems was performed and is negative for pertinent findings except as documented above in the HPI. - Cardiovascular Cardiovascular: as per HPI, chest pain with exertion, radiating jaw, neck or arm pain - Gastrointestinal Gastrointestinal: nausea Physical Examination Vital Signs, Last 4 Hours Temp Pulse Resp BP Pulse Ox 11/27/17 08:00 97.8 F 66 16 145/76 93 Vital Signs Temp Pulse Resp BP Pulse Ox 11/27/17 08:00 97.8 F 66 16 145/76 93 11/27/17 03:17 97.8 F 68 14 153/76 93 11/26/17 23:38 98 F 74 17 137/71 90 11/26/17 21:32 98.2 F 69 16 157/72 96 11/26/17 20:46 17 166/82 11/26/17 19:04 93 17 172/87 95 11/26/17 13:55 98.0 F 82 16 159/83 100 Intake and Output 11/26/17 11/27/17 11/27/17 23:59 07:59 15:59 Other: Weight 72.2 kg General: Conversant, No Apparent Distress HEENT: Atraumatic, Normocephaly, Mucus Membranes Moist Neck: No JVD, Normal carotid pulses Cardiac: Reg Rate and Rhythm, Normal S1 and S2, No Murmur Lungs: Normal Breath Sounds, No Wheeze, Rales, Rhonchi Neuro: Alert and responsive, No focal deficits noted Abdomen: Soft, Non-Tender Skin: No rashes noted on visualized skin Musculoskeletal: No Chest Wall Tenderness Extremities: No Clubbing, No Cyanosis, No Edema, Normal Pulses Results 11/27/17 03:40 11/27/17 03:40 Lab Results 11/26/17 11/27/17 11/27/17 21:28 03:40 03:40 WBC 6.9 Hgb 13.4 Hct 41.3 Plt Count 182 Sodium Potassium Chloride Carbon Dioxide BUN Creatinine Glucose Calcium Magnesium Troponin I < 0.03 < 0.03 11/27/17 03:40 WBC Hgb Hct Plt Count Sodium 143 Potassium 3.9 Chloride 108 H Carbon Dioxide 31 H BUN 23 Creatinine 0.82 Glucose 92 Calcium 9.0 Magnesium 2.1 Troponin I Short CBC 11/27/17 11/26/17 Range/Units 03:40 14:39 WBC 6.9 7.5 (4.3-11.1) K/mcL Hgb 13.4 14.2 (11.5-15.4) g/dL Hct 41.3 43.1 (35.3-44.9) % Plt Count 182 199 (140-400) K/mcL Neutrophils # 4.1 5.3 (1.6-8.9) K/mcL BMP 11/27/17 11/26/17 Range/Units 03:40 14:39 Sodium 143 142 (136-145) mEq/L Potassium 3.9 3.7 (3.5-5.1) mEq/L Chloride 108 H 106 (98-107) mEq/L Carbon Dioxide 31 H 32 H (23-29) mEq/L BUN 23 22 (8-23) mg/dL Creatinine 0.82 0.82 (0.60-1.20) mg/dL Glucose 92 116 H (70-105) mg/dL Calcium 9.0 9.6 (8.6-10.3) mg/dL Cardiac Enzymes 11/27/17 11/26/17 11/26/17 Range/Units 03:40 21:28 14:39 Troponin I < 0.03 < 0.03 < 0.03 (< 0.04) ng/mL Impressions Chest X-Ray 11/26/17 14:05 IMPRESSION: No acute process. D/ / Farooq Nguyễn MD / Farooq Nguyễn MD Interpreting Provider: Farooq Nguyễn MD Active Medications Acetaminophen (Tylenol) 650 mg PO Q6HR PRN PRN Reason: Mild Pain (1-3) Stop: 05/28/18 20:56 Last Admin: 11/26/17 23:37 Dose: 650 mg Amlodipine Besylate (Norvasc) 2.5 mg PO HS [facility] Stop: 05/29/18 21:01 Ascorbic Acid (Vitamin C) 500 mg PO DAILY [facility] Stop: 05/29/18 09:01 Aspirin (Aspirin Ec) 81 mg PO QPM [facility] Stop: 05/29/18 18:01 Atorvastatin Calcium (Lipitor) 20 mg PO MOWEFR [facility] Stop: 05/29/18 21:05 Melatonin (Melatonin) 3 mg PO HS [facility] Stop: 05/28/18 23:01 Last Admin: 11/26/17 23:04 Dose: 3 mg Metoprolol Tartrate (Lopressor) 25 mg PO BID [facility] Stop: 05/29/18 09:01 Naloxone HCl (Narcan) 0.4 mg IVP Q2MIN PRN PRN Reason: Opioid Reversal Stop: 05/28/18 20:56 Nitroglycerin (Nitroglycerin) 0.4 mg SL Q5MIN PRN PRN Reason: Chest Pain Stop: 05/28/18 18:24 Pharmacy Profile Note (Patient Taking Own Medication) 0 each PO DAILY [facility] Stop: 05/29/18 09:01 Rivaroxaban (Xarelto) 20 mg PO 1700 [facility] Stop: 05/29/18 17:01 Vitamin E (Vitamin E) 200 unit PO DAILY [facility] Stop: 05/29/18 09:01 - Imaging and Cardiology Stress Test: report reviewed Echo: report reviewed Cardiac cath: report reviewed - EKG Interpretation EKG results cardiology: personally reviewed, other (12 hr tele AVG HR 70, brief PAF episode noted) Consult Discharge Plan - Plan Referrals: Davi Lyon DO [Primary Care Provider] - 12/02/17 3:00 pm <Sravan Tovar - Last Filed: 11/27/17 13:00> Date of Encounter: 11/27/17 - Attending Attestation I have personally performed a face to face evaluation on this patient. I have reviewed and agree with the care plan. History and Exam by me shows: CC: Chest pain Pt presents to the ER with complaints of left sided chest pain, starts mid sternal, radiates into left chest and left arm, dull ache, 8/10 at most severe, associated with shortness of breath, provoked by exercise and improved with rest , lasts five to ten minutes. Pt reports she becomes short of breath with exercise, then chest pain occurs. She notes mild nausea with chest pain. Pt reports chest pain is similar to discomfort experienced before PCI with CECILIA LAD 08/2016, which had resolved until 08/2017. She underwent stress imaging in 2016, which revealed EF >70%,, normal wall motion and no inducible ischemia. She is currently7 pain free. PE: agree with DATABASE MARKETING ANALYST findings IMP: 1. Chest pain, consistent with previous anginal symptoms, with dynamic EKG changes in Lateral wall, recommend LHC/possible, risks and benefits discussed, pt elects to proceed. Will schedule LHC later this afternoon. 2. CAD - severe single vessel CAD with PCI with CECILIA LAD 3. Persistant A fib with controlled ventricular response, on systemic anticoagulation on Xaralto, on hold for pending LHC. last dose yesterday AM> 4. Hyperlipidemia: on Atorvastatin, tolerating well, fasting lipid profile ordered. Assessment and Plan Discussion w patient/family: The assessment and plan as outlined above was discussed with the patient and/or family members who expressed understanding and agreement. All questions were answered. Thank you for involving us in the care of your patient. Please call with any questions. History of Present Illness History of present illness: Ms. Pena is a 77 year old female All Systems Review: A 10-system review of systems was performed and is negative for pertinent findings except as documented above in the HPI. Physical Examination Vital Signs, Last 4 Hours Temp Pulse Resp BP Pulse Ox 11/27/17 11:52 98.0 F 65 16 167/89 93 Results 11/27/17 03:40 11/27/17 03:40 Lab Results 11/26/17 11/27/17 11/27/17 21:28 03:40 03:40 WBC 6.9 Hgb 13.4 Hct 41.3 Plt Count 182 Sodium Potassium Chloride Carbon Dioxide BUN Creatinine Glucose Calcium Magnesium Troponin I < 0.03 < 0.03 11/27/17 03:40 WBC Hgb Hct Plt Count Sodium 143 Potassium 3.9 Chloride 108 H Carbon Dioxide 31 H BUN 23 Creatinine 0.82 Glucose 92 Calcium 9.0 Magnesium 2.1 Troponin I
--- NOTE | 2017-11-27 09:23 | Electrocardiograph Report ---
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
[2017-11-27] MEDS: (Omega-3/Dha/Epa/Fish Oil [Fish Oil 1,000 Mg Softgel] PO SCH (09:38)
[2017-11-27] MEDS: Acetaminophen 325 MG TABLET PO PRN (09:39)
[2017-11-27] MEDS: Ascorbic Acid 500 MG TABLET PO SCH (09:39)
--- NOTE | 2017-11-27 12:20 | Pre-Sedation Evaluation ---
Pre-sedation evaluation - Pre-sedation checklist Date of procedure: 11/27/17 Procedure: [facility] Recent Vitals: Last Vital Signs Temp 98.0 F 11/27/17 11:52 Pulse 65 11/27/17 11:52 Resp 16 11/27/17 11:52 BP 167/89 11/27/17 11:52 Pulse Ox 93 11/27/17 11:52 H&P (including ROS) documented in medical record: Yes Previous reaction to sedatives/anesthetics: Yes; explain in comment Dietary Status: NPO after Midnight Dentition: No loose teeth or bridges ASA Classification *see protocol: CLASS II-Mild systemic disease Plan of Care: Pt appropriate candidate for procedure/moderate/conscious sedation , Risks/benefits of procedure/sedation discussed w/ patient/family
[2017-11-27] MEDS ORDERED: Verapamil 5 MG/2 ML VIAL ONE (14:44)
[2017-11-27] MEDS ORDERED: *HR* Heparin 10,000 UNIT/10 ML VIAL ONE (14:45)
[2017-11-27] MEDS ORDERED: 0.9 % Sodium Chloride 2,000 ML ONE (14:45)
[2017-11-27] MEDS ORDERED: Heparin 1,000 UNITS/500 mL 500 ML ONE (14:45)
[2017-11-27] MEDS ORDERED: Nitroglycerin 1,000 MCG/10 ML VIAL IV ONE ×2 (14:45→15:31)
[2017-11-27] MEDS ORDERED: *HR* FentaNYL (PF) 100 MCG/2 ML VIAL ONE (15:03)
[2017-11-27] MEDS ORDERED: *HR* Midazolam HCl 2 MG/2 ML VIAL ONE (15:03)
[2017-11-27] MEDS ORDERED: *HR* Morphine 2 MG/ML SYRINGE IVP PRN (15:49)
[2017-11-27] MEDS ORDERED: Ondansetron 4 MG/2 ML VIAL IVP PRN (15:49)
--- NOTE | 2017-11-27 15:58 | Event Note ---
Date of Encounter: 11/27/17 Time of Encounter: 15:55 - Cardiology Event Note LHC completed, no intervention warranted. Final report pending. Will add Imdur 30mg daily. Continue ASA, Statin, BB. BP elevated throughout the day. Increase Norvasc to 5mg daily. Cardiology signing off. Reconsult PRN. Will coordinate outpt follow-up in 3-4 weeks.
--- NOTE | 2017-11-27 16:08 | Invasive Diagnostic Lab Proc ---
Name: Shauna Pena Date of Study: 11/27/2017 Date: 1940 Ht: 64.0in Medical Record#: [id number] Age: 77 Wt: 158.29lb Gender: Female BSA: 1.77 Order #: [id number] BMI: 27.16 Physicians Procedure Physician: Rudy Mckeon MD, [facility] Referring MD: Referring MD: Staff Name Position Time In Yuridia Mon RT (R) Scrub 02:54 PM ReannaNichole RT (R) Monitor 02:55 PM Farrah Rosales RN Mental Health Coordinator 02:55 PM Indications Indication Unstable Angina Procedures Performed Procedure L HRT ARTERY/VENTRICLE ANGIO IV Doppler BLD Flow 1st Vessel Pre-Procedure Checklist Informed consent is complete signed and on chart. H&P is on chart. ID band is on and ID verified with patient. Patient NPO for procedure The procedure was described for the patient and questions were answered. Blood Pressure: 180/78 ECG is on chart. Rhythm: NSR Plan of Care Patient will tolerate the procedure without complications. Adequate level of comfort will be maintained. Hemodynamics will remain stable Patient will recover from procedure without complications. Respiratory function will be maintained. Cardiac rhythm will remain stable. Patient temperature will be maintained. Patient and/or family have verbalized understanding of the procedure. Patient Education Chief Complaint/Reason for Test: Cardiac Cath Developmental Category: Geriatric (65+ years) Developmentally Appropriate for Age: Yes Learning Barriers: None Education Needs: Procedure Education Method: Verbal Information Taught: Cardiac Cath Educational Evaluation: Able to repeat information Intravenous Access Time IV Size Location DC'd Fluid/Drip Rate Units RN 20g 1 1/4" Patent On Arrival Lt Antecubital 0.9NaCl ml/hr Started with 20g 1 1/4" Rt Antecubital Allergies SALICYLATES No Known Allergies Vital Signs Time BP (mmHg) HR (bpm) O2 Sat. RR (bpm) LOC 02:55 PM / % 5 = Fully awake and oriented or at pre-proc level 02:59 PM 180 / 78 74 95 % 34 03:03 PM 173 / 90 76 97 % 20 03:08 PM 151 / 70 77 91 % 14 03:13 PM 136 / 67 78 94 % 22 03:18 PM 125 / 68 74 92 % 17 03:23 PM 134 / 64 75 95 % 15 03:28 PM 134 / 55 79 96 % 14 03:33 PM 136 / 68 71 96 % 23 03:38 PM 123 / 60 83 97 % 20 03:43 PM 132 / 67 81 97 % 20 03:48 PM 143 / 71 70 97 % 17 Procedural Medications Time Medication Dose Units Method Given By 03:07 PM Versed 2 mg Intravenous Farrah Rosales RN 03:07 PM Fentanyl 50 mcg Intravenous Farrah Rosales RN 03:09 PM Oxygen 4 L/min nasal cannula Farrah Rosales RN 03:11 PM Lidocaine 2% 0.5 ml Subcutaneous Rudy Mckeon MD, FAC 03:13 PM Heparin 4000 units Nitroglycerin 200 mcg Verapamil 2.5 mg Intraarterial Rudy Mckeon MD, FAC 03:15 PM Lidocaine 2% 18 ml Subcutaneous Rudy Mckeon MD, FAC 03:28 PM Nitroglycerin 200 mcg Intracoronary Rudy Mckeon MD 03:35 PM Adenosine 604.8 mcg Intracoronary Rudy Mckeon MD, FACC 03:35 PM Adenosine 604.8 mcg Intravenous Rudy Mckeon MD, FAC 03:40 PM Adenosine 604.8 mcg Intravenous Rudy Mckeon MD, [facility] Christal Score Preprocedure Postprocedure Activity 2- Moves 4 extremities sustained head lift Activity Circulation 2- SBP +/= 20 points of pre-anesthetic level Circulation Consciousness 2- Awake and alert oriented x 3 Consciousness O2 Saturation 2- Able to maintain O2 satruation of 92% on room air O2 Saturation Respiratory 2- Able to deep breathe and cough well Respiratory Total Score 10 Total Score Contrast Agent: Isovue Diagnostic Contrast: 135 ml Total Contrast: 135 ml Fluoro Dose: 264 mGy Activated Clotting Time Time Seconds to Clot 03:38 PM 400 Procedure Log Time Note Enter By 02:54 PM Pt arrived to dental laboratory manager 1 at 14:54 [email or web address] 02:55 PM Yuridia Mon RT (R) Position: Scrub Time in: 14:54 [email or web address] 02:55 PM Nichole Forte RT (R) Position: Monitor Time in: 14:55 02:55 PM Farrah Rosales RN Position: Mental Health Coordinator Time in: 14:55 [email or web address] 02:55 PM Patient charges- Angio tray pack, Navilyst 3mm J, Pulse Oximetry and ACIST tubing and transducer ell 02:55 PM IV Supplies used: J loop Angio Cath. PM Case Delayed No, inpatient PM Physician arrived 14: PM Meet and greet completed PM Sign in performed according to hospital policy. PM Procedure start 14: PM Time: 14:55 Patient comfortable and pain free: Yes PM Time: 14:55LOC: 5 = Fully awake and oriented or at pre-proc level PM Clinical Presentation: Unstable angina PM Vitals capture started with the following parameters, Patient=Adult, Interval=5 min, Initial Zgugqulp=158 mmHg, Deflation Rate=5 mmHg, Cuff placed on Left Arm PM CathStat PM Case Start 02:59 PM HR=74 bpm, NZLM=833/78 mmhg, SpO2=95.0 %, Resp=34 B/min, Comment=NSR 03:03 PM HR=76 bpm, UFMY=132/90 mmhg, SpO2=97.0 %, Resp=20 B/min, Comment=NSR 03:05 PM Time: 15:05 Oxygen on at 2 L/min per nasal cannula by Farrah Rosales RN dave 03:07 PM Time: 15:07 Versed 2 mg Intravenous Given by Farrah Rosales RN dave 03:07 PM Time: 15:07 Fentanyl 50 mcg Intravenous Given by Farrah Rosales RN 03:08 PM Pressure channel 1 zero failed. 03:08 PM HR=77 bpm, PRCY=635/70 mmhg, SpO2=91.0 %, Resp=14 B/min, Comment=NSR 03:08 PM Pressure channel 1 zeroed. 03:08 PM Recorded ECG: HR=78 Condition=Condition 1 03:09 PM Time: 15:09 Oxygen on at 4 L/min per nasal cannula by Farrah Rosales RN 03:10 PM Time out performed according to hospital policy 03:11 PM Time: 15:11 0.5 ml Lidocaine 2% to right radial Subcutaneous Given by Rudy Mckeon MD, [facility] 03:12 PM Access obtained by percutaneous puncture. 6Fr 10cm Terumo Glidesheath sheath placed in right Radial artery. [id number] [email or web address] 03:13 PM Time: 15:13 Patient given 4,000 units Heparin, 200 mcg Nitroglycerin, and 2.5 mg Verapamil Intraarterial by Rudy Mckeon MD, [facility]. This is given to reduce risk of vessel spasm and thrombosis. [email or web address] 03:13 PM HR=78 bpm, XZMW=192/67 mmhg, SpO2=94.0 %, Resp=22 B/min, Comment=NSR 03:14 PM 0.035 260cm Navilyst 3mmJ wire [id number] [email or web address] 03:14 PM 5Fr TIG catheter inserted over the wire DN [email or web address] 03:14 PM Recorded Pressure: Ao, HR=79, Condition=Condition 1 (Aorta) Ao 117/69/92 03:15 PM Catheter removed [email or web address] 03:15 PM Wire removed [email or web address] 03:15 PM Time: 15:15 18 ml Lidocaine 2% to right groin Subcutaneous Given by Rudy Mckeon MD, [facility] [email or web address] 03:17 PM Access obtained by percutaneous puncture. 5Fr 10cm Terumo [place] sheath placed in right Femoral artery. [id number] [email or web address] 03:17 PM 0.035 145cm Navilyst 3mmJ wire [id number] [email or web address] 03:17 PM 5Fr FL 4 catheter inserted over the wire DN [email or web address] 03:18 PM LCA angiography performed in multiple views. [email or web address] 03:18 PM Recorded Pressure: Ao, HR=74, Condition=Condition 1 (Aorta) Ao 107/63/83 03:18 PM HR=74 bpm, GTAH=667/68 mmhg, SpO2=92.0 %, Resp=17 B/min, Comment=NSR 03:20 PM Lesion found in Proximal LAD. Pre Stenosis: 30 Pre MIREYA Flow: 3: Complete and Brisk Flow/Perfusion [email or web address] 03:20 PM Lesion found in Mid Circumflex. Pre Stenosis: 20 Pre MIREYA Flow: 3: Complete and Brisk Flow/Perfusion [email or web address] 03:20 PM Catheter removed [email or web address] 03:21 PM 5Fr FR 4 catheter inserted over the wire DN [email or web address] 03:21 PM Recorded Pressure: Ao, HR=76, Condition=Condition 1 (Aorta) Ao 119/66/89 03:21 PM RCA angiography performed in multiple views. [email or web address] 03:21 PM Coronary Dominance: right [email or web address] 03:22 PM Catheter removed [email or web address] 03:22 PM 5Fr Pigtail catheter inserted over the wire [facility] [email or web address] 03:23 PM Catheter selectively placed in left ventricle [email or web address] 03:23 PM Bolus angiogram of left Ventricle complete: 10 ml/sec for a total of 20 mls [email or web address] 03:23 PM HR=75 bpm, NMXV=364/64 mmhg, SpO2=95.0 %, Resp=15 B/min, Comment=NSR 03:23 PM Recorded Pressure: LV, HR=75, Condition=Condition 1 (Left Ventricle) LV 96/19/24 03:23 PM Recorded Pressure: LV, HR=74, Condition=Condition 1 (Left Ventricle) LV 118/-2/10 03:24 PM Recorded Pressure: LV, HR=74, Condition=Condition 1 (Left Ventricle) LV 132/0/11 03:25 PM Recorded Pressure: LV, Ao, HR=76, Condition=Condition 1 (Left Ventricle) LV 132/1/12, (Aorta) Ao 142/61/94 03:28 PM Inflation device was opened. [email or web address] 03:28 PM HR=79 bpm, QOXR=765/55 mmhg, SpO2=96.0 %, Resp=14 B/min, Comment=NSR 03:28 PM Time: 15:28 Nitroglycerin 200 mcg Intracoronary Given by Rudy Mckeon MD [email or web address] 03:29 PM 6Fr MP1 Runway guide catheter was used to cannulate the PCI vessel successfully. reused? No [email or web address] 03:29 PM .014 [place] 190cm guide wire across target lesion- successful. reused? No [email or web address] 03:31 PM Asist FFR Catheter advanced to target lesion. [email or web address] 03:33 PM HR=71 bpm, PLUN=485/68 mmhg, SpO2=96.0 %, Resp=23 B/min, Comment=NSR 03:35 PM Time: 15:35 Adenosine 604.8 mcg administered Intravenous by Rudy Mckeon MD, [facility] [email or web address] 03:36 PM Recorded Pressure: Ao, HR=71, Condition=Condition 1 (Aorta) Ao 117/61/87 03:38 PM HR=83 bpm, ILRX=966/60 mmhg, SpO2=97.0 %, Resp=20 B/min, Comment=NSR 03:38 PM FFR Measurement: 0.93 [email or web address] 03:38 PM At 15:38 the ACT was 400 seconds. [email or web address] 03:38 PM Adenosine off. [email or web address] 03:40 PM Time: 15:40 Adenosine 604.8 mcg administered Intravenous by Rudy Mckeon MD, [facility] [email or web address] 03:42 PM FFR Measurement: 0.92 [email or web address] 03:42 PM Adenosine off [email or web address] 03:43 PM Flow Wire/Catheter removed intact [email or web address] 03:43 PM HR=81 bpm, VRMC=667/67 mmhg, SpO2=97.0 %, Resp=20 B/min, Comment=NSR 03:43 PM Guide catheter removed intact. [email or web address] 03:44 PM Bolus angiogram of right Femoral complete: 4 ml/sec for a total of 7 mls [email or web address] 03:47 PM Procedure completed at 15:47 [email or web address] 03:47 PM Sign out completed: Radiation Dose 236.82 mGy Fluoro Time: 6.9 Isovue 370 - 200ml contrast 135 ml given by Rudy Mckeon MD, [facility]. Complications: NoneCardiac Rehab Consult needed: NoConfirmed administered medications: Yes [email or web address] 03:47 PM Isovue 370 - 200ml,1 Bottle(s) used. [email or web address] 03:47 PM Sheath left in place to be pulled on floor/holding areaV+Pad [email or web address] 03:48 PM 11 ml air in Vasc Band. [email or web address] 03:48 PM Estimated Blood Loss: minimal [email or web address] 03:48 PM Post ECG NSR [email or web address] 03:48 PM HR=70 bpm, WNAQ=364/71 mmhg, SpO2=97.0 %, Resp=17 B/min, Comment=NSR 03:49 PM Post Blood Pressure 143/71 [email or web address] 03:49 PM 15:49 Post Pulses Bilateral DP & PT 1+ [email or web address] 03:49 PM Information taught Cardiac Cath and IVUS/Flowire [email or web address] 03:49 PM Education needs Procedure, Plan of Care, and Disease Process [email or web address] 03:49 PM Learning barriers :None [email or web address] 03:49 PM Education Methods Verbal [email or web address] 03:49 PM Education evaluation Able to repeat information [email or web address] 03:49 PM Site status No bleeding/hematoma - Rt Groin as reported by Yuridia Mon RT (R) at 15:49 [email or web address] 03:49 PM Opsite applied [email or web address] 03:49 PM Delay to floor No [email or web address] 03:50 PM Family placed in consult room. [email or web address] 03:50 PM Complications: None [email or web address] 03:50 PM Fluoro Time: 6.9 [email or web address] 03:50 PM Isovue 370 - 200ml contrast 135 ml given by Rudy Mckeon MD, [facility]. [email or web address] 03:50 PM Radiation Dose 263.82 mGy [email or web address] 03:58 PM Report given to Trish COOPER Pt taken to Room #15. 15:58 [email or web address] 03:59 PM Patient out of room: 15:58 [email or web address] Complications Complication None None Hemodynamics Pressures Site Systolic/A Wave Diastolic/V Wave Mean AO 117 69 92 AO 107 63 83 AO 119 66 89 LV 96 19 24 LV 118 -2 10 LV 132 0 11 LV 132 1 12 AO 142 61 94 AO 117 61 87 Post Procedure Information Blood Pressure: 143/71 mmHg Rhythm: NSR Post procedural instructions were not given Closure Device Time Device Success/Fail 11/27/2017 3:50:00 PM Manual Compression yes Site Checks Time Location Status Staff Sheath In? Note 03:49 PM Rt Groin No bleeding/hematoma Yuridia Mon RT (R) Pulses Time Site Pre-Procedure Post-Procedure Note Bilateral DP & PT 2+ 2+ Bilateral radial 2+ 2+ 3:49:00 PM Bilateral DP & PT 1+ Updated by Nichole Forte, RT(R) on 11/27/2017 3:59:16 PM electronically signed on 11/27/2017 4:02:08 PM with status of Final
--- NOTE | 2017-11-27 16:59 | Internal Med Progress Note ---
Date of Encounter: 11/27/17 Time of Encounter: 09:45 - Assessment and plan (1) CAD (coronary artery disease) Current Visit: Yes Status: Chronic Assessment and plan: per hx. C 08/2016 severe single vessel disease s/p PTCA/CECILIA to mLAD. 50% pRCA lesion. Low level stress test 06/2017 negative for ischemia or infarct. Echo 2016 EF preserved with normal wall motion. 11/26/17 [facility] with no intervention warranted; final report pending. Imdur added per Cardiology. Continue ASA, Statin, BB. Qualifiers: Coronary Disease-Associated Artery/Lesion type: [place] artery [place] vs. transplanted heart: [place] heart Associated angina: angina presence unspecified Qualified Code(s): I25.10 - Atherosclerotic heart disease of [place] coronary artery without angina pectoris (2) Atrial fibrillation Current Visit: No Status: Acute Assessment and plan: hx PAF. Rate controlled. Cont home CCB, xarelto Qualifiers: Atrial fibrillation type: unspecified Qualified Code(s): I48.91 - Unspecified atrial fibrillation (3) Hypertension Current Visit: Yes Status: Chronic Assessment and plan: per hx. BP mildly elevated. Home amlodipine increased per cardiology. Monitor BP and titrate PRN Qualifiers: Hypertension type: essential hypertension Qualified Code(s): I10 - Essential (primary) hypertension (4) DVT prophylaxis Current Visit: No Status: Acute Assessment and plan: xarelto - Subjective Interval history: Seen and examined at bedside. Patient is new to me, information obtained from chart review and patient report. Patient says she feels better from arrival yesterday. Denies chest pain but does have some left shoulder pain. No shortness of breath. She is aware of plan for left heart catheterization later on today. - Constitutional Vitals: Temp Pulse Resp BP Pulse Ox 97.7 F 68 16 143/71 92 11/27/17 16:15 11/27/17 16:45 11/27/17 16:15 11/27/17 16:45 11/27/17 16:15 General appearance: Present: A&O X 3 - Head Head exam: Present: atraumatic, normocephalic - Eye Eye exam: Present: PERRL, conjuntiva pink, sclera anicteric Pupils: Present: PERRL - Neck Neck exam general surgery: Present: supple, trachea midline. Absent: lymphadenopathy - Respiratory Respiratory exam: Present: CTAB. Absent: accessory muscle use, rales, rhonchi, wheezes - Cardiovascular Cardiovascular exam: Present: RRR, +S1, +S2. Absent: diastolic murmur, gallop, rubs, systolic murmur - GI/Abdominal GI/Abdominal exam: Present: normal bowel sounds, soft, no peritoneal signs. Absent: distended, tenderness - Extremities Exam Extremities exam: Present: warm, radial pulses palpable and symmetrical. Absent : calf tenderness, cyanotic, pedal edema - Neurological Exam Neurological exam: Present: CN II-XII intact, oriented X3, no focal deficits. Absent: pronater drift, facial droop, speech deficit - Skin Skin exam: Present: dry, intact Internal Medicine: Result - Labs CBC & Chem 7: 11/27/17 03:40 11/27/17 03:40 Labs: Short CBC 11/27/17 Range/Units 03:40 WBC 6.9 (4.3-11.1) K/mcL Hgb 13.4 (11.5-15.4) g/dL Hct 41.3 (35.3-44.9) % Plt Count 182 (140-400) K/mcL Neutrophils # 4.1 (1.6-8.9) K/mcL BMP 11/27/17 03:40 Sodium 143 Potassium 3.9 Chloride 108 H Carbon Dioxide 31 H BUN 23 Creatinine 0.82 Glucose 92 Calcium 9.0 Cardiac Enzymes 11/26/17 11/27/17 Range/Units 21:28 03:40 Troponin I < 0.03 < 0.03 (< 0.04) ng/mL - ABG Interpretation ABG results: PT/INR, D-dimer PT 13.5 Seconds (9.4-12.1) H 11/26/17 14:39 Consult Discharge Plan - Plan Referrals: Davi Lyon DO [Primary Care Provider] - 12/02/17 3:00 pm
[2017-11-27] MEDS ORDERED: *HR* Rivaroxaban 10 MG TABLET PO SCH (17:00)
[2017-11-27] MEDS ORDERED: *HR* Atropine Sulfate 1 MG/ML VIAL ONE (17:47)
[2017-11-27] MEDS ORDERED: Aspirin Enteric Coated 81 MG Tablet PO SCH (18:00)
[2017-11-27] MEDS: Isosorbide MONOnitrate (24 HR) 30 MG TAB.ER.24H PO SCH (18:56)
[2017-11-27] MEDS ORDERED: amLODIPine 5 MG TABLET PO SCH ×2 (21:00)
[2017-11-27] MEDS: Melatonin 3 MG TABLET PO SCH (21:31)
[2017-11-28] MEDS: Isosorbide MONOnitrate (24 HR) 30 MG TAB.ER.24H PO SCH (08:43)
[2017-11-28] MEDS: Ascorbic Acid 500 MG TABLET PO SCH (08:43)
[2017-11-28] MEDS: (Omega-3/Dha/Epa/Fish Oil [Fish Oil 1,000 Mg Softgel] PO SCH (08:44)
--- NOTE | 2017-11-28 09:40 | Discharge Summary ---
Date of Encounter: 12/03/17 Time of Encounter: 09:38 - Discharge Medications Prescriptions: Nitroglycerin 0.4 mg SL Q5MIN PRN 30 Days #30 tab.subl PRN Reason: Chest Pain amLODIPine [Norvasc] 5 mg PO HS 30 Days #30 tablet Home Medications: Ascorbate Calcium [Vitamin C] 500 mg PO DAILY 05/03/16 [History] Fluticasone Propionate Nasal [Flonase] 50 mcg NS DAILY PRN 05/03/16 [History] Multivit-Min/FA/Lycopen/Lutein [Adults 50+ Multivitamin Tablet] 1 each PO DAILY 05/03/16 [History] Platina-3/Dha/Epa/Fish Oil [Fish Oil 1,000 mg Softgel] 1 each PO DAILY 05/03/16 [ History] Vitamin E 200 unit PO DAILY 05/03/16 [History] Metoprolol [Lopressor] 25 mg PO BID 08/20/16 [History] Aspirin [Lo-Dose Aspirin EC] 81 mg PO QPM 06/09/17 [History] Melatonin [Melatin] 3 mg PO HS 06/09/17 [History] Rivaroxaban [Xarelto] 20 mg PO DAILY 06/09/17 [History] Atorvastatin Calcium [Lipitor] 20 mg PO MOWEFR 06/10/17 [History] Biotin 1 mg PO DAILY 11/26/17 [History] Cholecalciferol (Vitamin D3) [Vitamin D3] 2,000 unit PO DAILY 11/26/17 [History] Nitroglycerin 0.4 mg SL Q5MIN PRN 30 Days #30 tab.subl 11/28/17 [Rx] Ondansetron [Zofran] 4 mg IVP Q6HR PRN vial 11/28/17 [Rx] amLODIPine [Norvasc] 5 mg PO HS 30 Days #30 tablet 11/28/17 [Rx] Allergies/Adverse Reactions: 3 Allergy/AdvReac Type Severity Reaction Status Date / Time No Known Allergies Allergy Verified 08/19/16 20:01 Procedures/tests Complete & Pending: Procedures Performed prior 72 hours Category Date Time Status CL Cardiac Catheterization [CL] Routine Machine Stoppage Frequency Checker 11/27/17 10:26 Ordered ECG 12 lead ECG [ECG] AM 0600 Y 11/27/17 06:00 Completed Date of admission: 11/26/17 20:08 Primary care physician: Kaylee Katz Consults: 11/26/17 21:05 Consult to Cardiology [CONS] Routine Comment: Consulting Provider: Cardiology Jennifer Reason for Consult: unstable angina Time Notified: 21:05 Call Completed: No Discharging clinician: Gerardo Harrington - Patient Status Disposition: Home, Self-Care Condition: Good - Discharge Instructions Instructions: Chest Pain (DC), Left Heart Catheterization (DC) Follow Up With: Davi Lyon DO [Primary Care Provider] - 12/02/17 3:00 pm Rex Us DO [Partnered Physician] - (OFFICE WILL CALL PATIENT AT HOME WITH FOLLOW UP APPOINTMENT) Interval History: (1) CAD (coronary artery disease) Current Visit: Yes Status: Chronic Assessment and plan: per hx. C 08/2016 severe single vessel disease s/p PTCA/CECILIA to mLAD. 50% pRCA lesion. Low level stress test 06/2017 negative for ischemia or infarct. Echo 2016 EF preserved with normal wall motion. 11/26/17 [facility] with no intervention warranted; final report pending. Imdur added per Cardiology. Continue ASA, Statin, BB. Qualifiers: Coronary Disease-Associated Artery/Lesion type: [place] artery [place] vs. transplanted heart: [place] heart Associated angina: angina presence unspecified Qualified Code(s): I25.10 - Atherosclerotic heart disease of [place] coronary artery without angina pectoris (2) Atrial fibrillation Current Visit: No Status: Acute Assessment and plan: hx PAF. Rate controlled. Cont home CCB, xarelto Qualifiers: Atrial fibrillation type: unspecified Qualified Code(s): I48.91 - Unspecified atrial fibrillation (3) Hypertension Current Visit: Yes Status: Chronic Assessment and plan: per hx. BP mildly elevated. Home amlodipine increased per cardiology. Monitor BP and titrate PRN Qualifiers: Hypertension type: essential hypertension Qualified Code(s): I10 - Essential (primary) hypertension (4) DVT prophylaxis Current Visit: No Status: Acute Assessment and plan: xarelto Hospital course: Hospital course: 77 yr old female patient with intermittent chest pain and pressure radiating at times to her left arm with associated symptoms of nausea. Pain is aggravated with exertion and relieved with rest.pressure radiating at times to her left arm with associated symptoms of nausea. Pain was aggravated with exertion and relieved with rest.for 4 days prior to admission. She does have a past history of CAD she had a drug-eluting stent to mid LAD August 2016. She underwent a nuclear cardiac stress 06/2017 which was negative for any ischemia or infarct. Cardiac echo 06/2017 with EF of 65% with normal LV chamber size and function. Her tropons were negative She was started on aspirin, statin and a bb as well as Imdur General appearance: Present: A&O X 3 - Head Head exam: Present: atraumatic, normocephalic - Eye Eye exam: Present: PERRL, conjuntiva pink, sclera anicteric Pupils: Present: PERRL - Neck Neck exam general surgery: Present: supple, trachea midline. Absent: lymphadenopathy - Respiratory Respiratory exam: Present: CTAB. Absent: accessory muscle use, rales, rhonchi, wheezes - Cardiovascular Cardiovascular exam: Present: RRR, +S1, +S2. Absent: diastolic murmur, gallop, rubs, systolic murmur - GI/Abdominal GI/Abdominal exam: Present: normal bowel sounds, soft, no peritoneal signs. Absent: distended, tenderness - Extremities Exam Extremities exam: Present: warm, radial pulses palpable and symmetrical. Absent : calf tenderness, cyanotic, pedal edema - Neurological Exam Neurological exam: Present: CN II-XII intact, oriented X3, no focal deficits. Absent: pronater drift, facial droop, speech deficit - Skin Skin exam: Present: dry, intact (1) Chest pain Current Visit: Yes Status: Acute Recurrent chest pain concerning for angina--midsternal with radiation to left arm, worse on exertion and relieved with rest. Troponin negative x 3. Initial EKG showed T wave inversions in I and aVL. Repeat EKG this AM shows this has returned to her baseline. Low level stress test 06/2017 negative for ischemia or infarct. Echo 06/2017 EF preserved with normal wall motion. LHC 08/2016 severe single vessel disease s/p PTCA/CECILIA to mLAD. 50% pRCA lesion. Discussed LHC vs medical management/addition of Imdur with close outpt follow. Pt prefers LHC, reasonable given recurrent chest pain admissions. R/B/A discussed and agrees to proceed with LHC today. Anticoagulated on Xarelto, last dose 11/26/16 AM. (2) Hypertension Current Visit: Yes Status: Chronic Hypertensive on admission, better controlled this AM. Continue to monitor and adjust antihypertensives as necessary. (3) Paroxysmal atrial fibrillation Current Visit: Yes Status: Chronic Known PAF. Anticoagulated on Xarelto. Continue BB. Brief PAF episode noted on tele. (4) CAD (coronary artery disease) Current Visit: Yes Status: Chronic C 08/2016 PTCA/CECILIA to mLAD, 50% pRCA lesion. Continue ASA, Statin, BB. Time spent discussing smoking cessation with patient: more than 10 minutes - Time Spent with Patient Total time spent providing and/or coordinating discharge services: Greater than 30 minutes - Constitutional Vitals: Temp Pulse Resp BP Pulse Ox 97.5 F L 83 16 107/55 94 11/28/17 07:00 11/28/17 08:54 11/28/17 08:47 11/28/17 08:47 11/28/17 08:47 General appearance: Present: A&O X 3, no acute distress - Head Head exam: Present: atraumatic, normocephalic - Eye Eye exam: Present: PERRL, conjuntiva pink, sclera anicteric Pupils: Present: PERRL - Neck Neck exam general surgery: Present: supple, trachea midline. Absent: lymphadenopathy - Respiratory Respiratory exam: Present: CTAB. Absent: accessory muscle use, rales, rhonchi, wheezes - Cardiovascular Cardiovascular exam: Present: RRR, +S1, +S2. Absent: diastolic murmur, gallop, rubs, systolic murmur - GI/Abdominal GI/Abdominal exam: Present: normal bowel sounds, soft, no peritoneal signs. Absent: distended, tenderness - Extremities Exam Extremities exam: Present: warm, radial pulses palpable and symmetrical. Absent : calf tenderness, cyanotic, pedal edema - Neurological Exam Neurological exam: Present: CN II-XII intact, oriented X3, no focal deficits. Absent: pronater drift, facial droop, speech deficit - Skin Skin exam: Present: dry, intact Additional comments: Right groin has no signs of hematoma following cath.
[2017-11-28 11:09] VITALS: BP 106/64
== END 2017-11-28 12:19 | disposition home or self-care (01) ==
LOC: EMEROO 13:54 → 3BNU 13:54 → 2NNU 11-27 15:49
PROVIDERS: ADMIT Internal Medicine; ATTEND Registered Nurse

== ENCOUNTER 2018-11-23 08:38 | Observation (INO) ==
[2018-11-23] MEDS ORDERED: Nitroglycerin 0.4 MG TAB.SUBL SL ONE (08:47)
[2018-11-23] MEDS ORDERED: Aspirin 81 MG TAB.CHEW PO ONE (08:47)
--- NOTE | 2018-11-23 08:56 | Emergency Department Note ---
Disposition Clinical Impression: Hypertension Qualifiers: Hypertension type: essential hypertension Qualified Code(s): I10 - Essential (primary) hypertension Chest pain Qualifiers: Chest pain type: unspecified Qualified Code(s): R07.9 - Chest pain, unspecified Disposition: Admitted As Inpatient Condition: Good General Adult HPI - General Stated complaint: Chest Pain Time Seen by Provider: 11/23/18 08:40 Source: patient, EMS Mode of arrival: EMS Limitations: no limitations Nursing Notes Reviewed: Yes Vital Signs Reviewed: Yes - History of Present Illness HPI Narrative: Patient is a 78-year-old female with past medical history including coronary artery disease with one stent placement to the mid LAD in 2016, atrial fibrillation on Xarelto, hypertension presenting with chief complaint of left- sided chest pressure for 2-3 days. Patient states mid October, she had an upper respiratory infection and on October 30, she was diagnosed with pneumonia. She is completed a course of antibiotics as an outpatient. She was still feeling generally weak and still had a cough so she followed up with her primary care physician 6 days ago. She has been feeling generally weak for the past week. Her PCP prescribed 5 day course of prednisone. 2 days ago, the patient was on day 4 of prednisone and stopped taking it she has been having intermittent episodes of a sided chest pressure. She states 2 days ago she also increased her amlodipine from 2.5 mg to 5 mg as her blood pressures have been elevated. The chest pressure has been becoming more frequent and this morning the patient woke up with the chest pressure radiating into her left shoulder, worse with exertion, associated with nausea and dizziness. She was still able to eat something. Denies vomiting, fevers, shortness of breath, abdominal pain. She does note yesterday she had a few episodes of nonbloody diarrhea which is since resolved. In route, the patient's oxygen saturations were 96-98% she was placed on 2 L of oxygen for comfort. Vitals otherwise stable. However she denies any shortness of breath at present. She states her nausea and dizziness is resolved but she is still complaining of the left-sided chest pressure. - Related Data Home Medications Medication Instructions Recorded Confirmed RX: Ascorbate Calcium [Vitamin C] 500 mg PO DAILY 05/03/16 11/26/17 RX: Fluticasone Propionate Nasal 50 mcg NS DAILY PRN 05/03/16 11/26/17 [Flonase] RX: Multivit-Min/FA/Lycopen/Lutein 1 each PO DAILY 05/03/16 11/26/17 [Adults 50+ Multivitamin Tablet] RX: [place]-3/Dha/Epa/Fish Oil [Fish 1 each PO DAILY 05/03/16 11/26/17 Oil 1,000 mg Softgel] RX: Vitamin E 200 unit PO DAILY 05/03/16 11/26/17 RX: Metoprolol [Lopressor] 25 mg PO BID 08/20/16 11/23/18 RX: Aspirin [Lo-Dose Aspirin EC] 81 mg PO QPM 06/09/17 11/23/18 RX: Melatonin [Melatin] 3 mg PO HS 06/09/17 11/26/17 RX: Rivaroxaban [Xarelto] 20 mg PO DAILY 06/09/17 11/26/17 RX: Biotin 1 mg PO DAILY 11/26/17 11/26/17 RX: Cholecalciferol (Vitamin D3) 2,000 unit PO DAILY 11/26/17 11/23/18 [Vitamin D3] Previous Rx's Medication Instructions Recorded RX: Nitroglycerin 0.4 mg SL Q5MIN PRN 30 Days #30 11/28/17 tab.subl RX: Ondansetron [Zofran] 4 mg IVP Q6HR PRN vial 11/28/17 RX: amLODIPine [Norvasc] 5 mg PO HS 30 Days #30 tablet 11/28/17 Allergies Allergy/AdvReac Type Severity Reaction Status Date / Time No Known Allergies Allergy Verified 08/19/16 20:01 All systems ED: reviewed and negative except as stated. Review of Systems: As Per HPI Constitutional: Denies: fever, chills ENT ED: Reports: congestion Cardiovascular: Reports: chest pain. Denies: palpitations, edema, syncope Respiratory: Reports: cough. Denies: dyspnea Gastrointestinal: Reports: nausea, diarrhea. Denies: abdominal pain, vomiting, melena, hematochezia Genitourinary: Denies: dysuria, hematuria Musculoskeletal: Denies: back pain Neurological: Reports: weakness. Denies: headache Past Medical History - Past Medical History Attestation: Yes The following information was validated with the patient. 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: Reports: endometriosis - Social History Smoking Status: Never smoker Smokeless Tobacco Status: No Alcohol use: Reports: none Drug use: Reports: none Physical Exam - General Limitations: no limitations General appearance: alert, in no apparent distress - Head Head exam: atraumatic, normocephalic, normal inspection - Eye Eye exam: Present: normal appearance, EOMI - ENT ENT exam: normal exam, normal oropharynx, mucous membranes moist - Neck Neck exam: Present: normal inspection, trachea midline - Chest Chest inspection: Present: normal inspection, symmetric chest wall rise - Respiratory Respiratory exam: Present: normal lung sounds bilaterally. Absent: respiratory distress, wheezes - Cardiovascular Cardiovascular exam: Present: regular rate, normal rhythm, normal heart sounds, other (Bilateral radial pulses are equal) - Abdominal Exam Abdominal exam: Present: soft, Non-Tender. Absent: tenderness, distention, guarding, rebound, rigidity - Extremities Exam Extremities exam: Present: normal inspection, full ROM, normal capillary refill. Absent: tenderness, pedal edema, calf tenderness - Neurological Exam Neurological exam: Present: alert, oriented X3 - Psychiatric Psychiatric exam: Present: normal affect, normal mood - Skin Skin exam: Present: warm, dry, intact, normal color Course Vital Signs Temperature 98.5 F 11/23/18 08:42 Pulse Rate 65 11/23/18 08:42 Respiratory Rate 15 11/23/18 08:42 Blood Pressure 170/79 11/23/18 08:42 O2 Sat by Pulse Oximetry 92 11/23/18 08:42 Temperature 98.5 F 11/23/18 08:42 Pulse Rate 64 11/23/18 09:01 Respiratory Rate 15 11/23/18 09:01 Blood Pressure 178/79 11/23/18 09:01 O2 Sat by Pulse Oximetry 100 11/23/18 09:01 Oxygen Delivery Oxygen Delivery Nasal Cannula Medical Decision Making - [facility] Narrative Medical decision making narrative: Patient presenting with left-sided chest pressure. Oxygen saturation was 92% on arrival and placed on 2 L of oxygen per nasal cannula. Secondary to her history and heart score 5, we will evaluate for acute coronary syndrome obtain EKG, troponin, CBC, BMP, PT INR. Patient also had a recent pneumonia still has a cough and generalized weakness we will obtain 2 view chest x-ray. We will also check urinalysis. Low clinical suspicion for dissection secondary to patient's history of presenting illness, bilateral radial pulses are equal, vitals stable. Low clinical suspicion for pulmonary embolism as well's score for PE is 0, she has no risk factors and is not tachycardic. She is also currently on Xarelto for atrial fibrillation. She is in sinus rhythm. Will give aspirin and trial of nitroglycerin as well. 0910 Patient was offered nitroglycerin and refused as she states "it makes her feel weird." she also states her chest pain is resolving. EKG shows sinus rhythm with no acute ischemic changes. 10:10 Labs and imaging reviewed. Chest x-ray without acute cardiopulmonary process. Initial troponin normal. No electrolyte abnormalities. No leukocytosis. Urinalysis without infection. While admit the patient for further evaluation of acute coronary syndrome and any new underlying cardiac disease. At present, the patient states chest pressure is improved but is still there. Vitals remained stable. Hospitalist consulted. 10:[address] Galarza, hospitalist, who accepts admission. Patient remains medically stable at this time with no new complaints. - Medical Records Medical records reviewed: Yes I reviewed the patient's medical records. - Lab Data Lab results reviewed: Yes I reviewed the patient's lab results. Result diagrams: 11/23/18 09:05 11/23/18 09:05 Lab Results 11/23/18 11/23/18 11/23/18 Range/Units 09:05 09:05 09:05 WBC 9.4 (4.3-11.1) K/mcL RBC 5.54 H (3.82-4.97) M/mcL Hgb 16.0 H (11.5-15.4) g/dL Hct 48.9 H (35.3-44.9) % MCV 88.3 (83.0-100.0) fL MCH 28.9 (28.0-33.3) pg MCHC 32.7 (31.6-35.5) g/dL RDW 13.2 (11.5-14.5) % Plt Count 189 (140-400) K/mcL MPV 11.1 (9.4-12.4) fL Immature Gran % 0.3 (0-4) % Seg Neutrophils % 74.8 % Lymphocytes % 16.1 % Monocytes % 7.0 % Eosinophils % 1.2 % Basophils % 0.6 % Neutrophils # 7.1 (1.6-8.9) K/mcL Lymphocytes # 1.5 (0.6-4.6) K/mcL Monocytes # 0.7 (0.0-1.3) K/mcL Eosinophils # 0.1 (0.0-0.6) K/mcL Basophils # 0.1 (0.0-0.2) K/mcL PT 19.9 H (9.4-12.1) Seconds INR 1.8 APTT 44.2 H (26.0-36.0) Seconds Sodium 139 (136-145) mEq/L Potassium 3.9 (3.5-5.1) mEq/L Chloride 99 (98-107) mEq/L Carbon Dioxide 34 H (23-29) mEq/L BUN 18 (8-23) mg/dL Creatinine 0.80 (0.60-1.20) mg/dL Est GFR ( Amer) > 60 (> 60) Est GFR (Non-Af Amer) > 60 (> 60) BUN/Creatinine Ratio 23 (6-26) Glucose 110 H (70-105) mg/dL Calculated Osmolality 291 (280-300) Calcium 10.2 (8.6-10.3) mg/dL Troponin I < 0.03 (< 0.04) ng/mL Urine Color (Yellow) Urine Clarity (Clear) Urine pH (5.0-8.0) pH Units Ur Specific Roy (1.010-1.025) Urine Protein (Neg-Trace) mg/dL Urine Glucose (UA) (Normal) mg/dL Urine Ketones (Negative) mg/dL Urine Blood (Negative) Urine Nitrite (Negative) Urine Bilirubin (Negative) Urine Urobilinogen (Normal) mg/dL Ur Leukocyte Esterase (Negative) Ur Culture Indicated? (NO) 11/23/18 Range/Units 09:12 WBC (4.3-11.1) K/mcL RBC (3.82-4.97) M/mcL Hgb (11.5-15.4) g/dL Hct (35.3-44.9) % MCV (83.0-100.0) fL MCH (28.0-33.3) pg MCHC (31.6-35.5) g/dL RDW (11.5-14.5) % Plt Count (140-400) K/mcL MPV (9.4-12.4) fL Immature Gran % (0-4) % Seg Neutrophils % % Lymphocytes % % Monocytes % % Eosinophils % % Basophils % % Neutrophils # (1.6-8.9) K/mcL Lymphocytes # (0.6-4.6) K/mcL Monocytes # (0.0-1.3) K/mcL Eosinophils # (0.0-0.6) K/mcL Basophils # (0.0-0.2) K/mcL PT (9.4-12.1) Seconds INR APTT (26.0-36.0) Seconds Sodium (136-145) mEq/L Potassium (3.5-5.1) mEq/L Chloride (98-107) mEq/L Carbon Dioxide (23-29) mEq/L BUN (8-23) mg/dL Creatinine (0.60-1.20) mg/dL Est GFR ( Amer) (> 60) Est GFR (Non-Af Amer) (> 60) BUN/Creatinine Ratio (6-26) Glucose (70-105) mg/dL Calculated Osmolality (280-300) Calcium (8.6-10.3) mg/dL Troponin I (< 0.04) ng/mL Urine Color Yellow (Yellow) Urine Clarity Clear (Clear) Urine pH 7.0 (5.0-8.0) pH Units Ur Specific Roy < 1.005 L (1.010-1.025) Urine Protein Negative (Neg-Trace) mg/dL Urine Glucose (UA) Normal (Normal) mg/dL Urine Ketones Negative (Negative) mg/dL Urine Blood Negative (Negative) Urine Nitrite Negative (Negative) Urine Bilirubin Negative (Negative) Urine Urobilinogen Normal (Normal) mg/dL Ur Leukocyte Esterase Negative (Negative) Ur Culture Indicated? NO (NO) - Radiology Data Radiology results reviewed: Yes I reviewed the patient's radiology results. Chest X-Ray 11/23/18 08:48 IMPRESSION: No evidence of acute cardiopulmonary disease. D/ / Mara Oliveira MD / Mara Oliveira MD Interpreting Provider: Mara Oliveira MD - EKG Data EKG #1 EKG attestation: Yes I reviewed and interpreted this EKG. EKG results narrative: EKG obtained from EMS at 813 shows sinus rhythm with heart rate approximately 75 bpm, no ST elevation or depression. EKG obtained at our facility at 8:49 AM shows sinus rhythm with heart rate 66. GA interval 142. QRS duration 100. QTC 421. [address] elevation in V2. No other ST elevation or depression. No reciprocal changes. This is compared to prior EKG on 11/27/2017 which is unchanged and shows no new changes. Attestation Statement - Attestation Attestation: Resident Attestation: I examined this patient and my medical decision making was reviewed with the Resident Physician. I agree with the documented findings, dis position and treatment plan as described except to the extent set forth below. We independently had [id number] contact with the patient. Patient with a history of coronary artery disease as well as A. fib on Xermetoo presented for evaluation of left-sided chest pain. Cardiac evaluation initiated . No acute distress, irregular rhythm, clear to auscultation bilaterally, abdomen soft nontender palpation.Peripheral edema. Initial cardiac evaluation within the ED does not show any specific etiology. Patient will be admitted secondary to risk factors for further evaluation, monitoring, treatment. Heart Score - Score History: Moderately Suspicious EKG: Normal Age: Greater than 65 Risk Factors: Equal/Greater than 3 risk factor or history of atherosclerotic disease Troponin: Less than normal limit HEART Score Total: 5
[2018-11-23 09:14] LABS: Basophils # 0.1 K/mcL (0.0-0.2); Basophils % 0.6 %; Eosinophils # 0.1 K/mcL (0.0-0.6); Eosinophils % 1.2 %; Hematocrit 48.9 % (35.3-44.9); Immature Granulocytes % 0.3 % (0-4); Lymphocytes # 1.5 K/mcL (0.6-4.6); Lymphocytes % 16.1 %; Mean Corpuscular HGB Conc 32.7 g/dL (31.6-35.5); Mean Corpuscular Hemoglobin 28.9 pg (28.0-33.3); Mean Corpuscular Volume 88.3 fL (83.0-100.0); Mean Platelet Volume 11.1 fL (9.4-12.4); Monocytes # 0.7 K/mcL (0.0-1.3); Neutrophils # 7.1 K/mcL (1.6-8.9); Platelet Count 189 K/mcL (140-400); Red Blood Count 5.54 M/mcL (3.82-4.97); Red Cell Distribution Width 13.2 % (11.5-14.5); Segmented Neutrophils % 74.8 %
[2018-11-23 09:24] LABS: INR 1.8; Prothrombin Time 19.9 Seconds (9.4-12.1)
[2018-11-23 09:26] LABS: Activated Partial Thrombo Time 44.2 Seconds (26.0-36.0)
[2018-11-23 09:26] LABS: Bilirubin,Urine Negative (Negative); Blood,Urine Negative (Negative); Clarity,Urine Clear (Clear); Color,Urine Yellow (Yellow); Glucose,Urine (UA) Normal (Normal); Ketones,Urine Negative (Negative); Leukocyte Esterase,Urine Negative (Negative); Nitrite,Urine Negative (Negative); Protein,Urine Negative (Neg-Trace); Specific Gravity,Urine < 1.005 (1.010-1.025); Urobilinogen,Urine Normal (Normal)
[2018-11-23 09:36] LABS: BUN/Creatinine Ratio 23 (6-26); Blood Urea Nitrogen 18 mg/dL (8-23); Calcium 10.2 mg/dL (8.6-10.3); Carbon Dioxide 34 mEq/L (23-29); Chloride 99 mEq/L (98-107); Glucose 110 mg/dL (70-105); Osmolality,Calculated 291 (280-300); Potassium 3.9 mEq/L (3.5-5.1); Sodium 139 mEq/L (136-145); Troponin I < 0.03 ng/mL (< 0.04); eGFR For Non-African Americans > 60 (> 60)
--- NOTE | 2018-11-23 11:52 | Internal Med History&Physical ---
Date of Encounter: 11/23/18 Time of Encounter: 11:00 Internal Medicine - H&P: HPI Chief complaint: Chest pain Admitted From: Home Plans for Post Hospital Care: Home History of present illness: Patient is a 78 year old female with past medical history significant for coronary arterial disease with left heart catheterization 08/2016 PTCA/CECILIA to mLAD, 50% pRCA lesion, and proximal atrial fibrillation on oral anticoagulation on Xarelto who presents to the ER on 11/23/18 due to chest pain. Patient reported of experiencing substernal chest pressure this morning with left shoulder pain that radiated down her left arm stopping at her elbow. Patient reported that the chest pressure was intermittent lasting for minutes without any provoking or relieving factors. Patient reported of associated symptoms of dizziness with nausea and weakness. Patients was concerned so called EMS where patient was brought into the ER for further evaluation. Patient was admitted on 11/26/17 for chest pain and a Left heart catheterization on 11/27/17 did not warrant any intervention; cardiology with recommendations to start Imdur 30 mg daily in addition to continuing beta juan, statin and aspirin. Echocardiogram in 2017 showed LVEF of 65% with normal LV chamber size and function. In the ER this visit, patients first set of the pulmonary and was negative. EKG reviewed by myself showed no ST/T-wave changes. She will be admitted to the observation unit for ACS rule out. Past Med Surg Social Fam HX - Past Medical History Medical history: arthritis, atrial fibrillation, coronary artery disease, hyperlipidemia, hypertension, myocardial infarction, syncope Additional medical history: HERNIATED DISC. Psychiatric history: no psych history - Past Surgical History Surgical History: angioplasty/stent, cataract, hysterectomy, other Additional surgical history: BACK SURGERY, TONSILLECTOMY, CARPAL TUNNEL SURGERY, REPAIRED RECTAL FISSURE, 1 CARDIAC STENT 07/2016. - Social History Smoking Status: Never smoker Smokeless Tobacco Status: No Alcohol use: none Drug use: none - Family History Mother Living Status: Hx Family Cardiac Disorders: Yes Father Living Status: Hx Family Cardiac Disorders: Yes (CONGESTIVE HEART FAILURE.) Internal Medicine - H&P: Meds Ascorbate Calcium [Vitamin C] 500 mg PO DAILY 05/03/16 [History] Fluticasone Propionate Nasal [Flonase] 50 mcg NS DAILY PRN 05/03/16 [History] Multivit-Min/FA/Lycopen/Lutein [Adults 50+ Multivitamin Tablet] 1 each PO DAILY 05/03/16 [History] [place]-3/Dha/Epa/Fish Oil [Fish Oil 1,000 mg Softgel] 1 each PO DAILY 05/03/16 [History] Vitamin E 200 unit PO DAILY 05/03/16 [History] Metoprolol [Lopressor] 25 mg PO BID 08/20/16 [History] Aspirin [Lo-Dose Aspirin EC] 81 mg PO QPM 06/09/17 [History] Melatonin [Melatin] 3 mg PO HS 06/09/17 [History] Rivaroxaban [Xarelto] 20 mg PO DAILY 06/09/17 [History] Biotin 1 mg PO DAILY 11/26/17 [History] Cholecalciferol (Vitamin D3) [Vitamin D3] 2,000 unit PO DAILY 11/26/17 [History] Nitroglycerin 0.4 mg SL Q5MIN PRN 30 Days #30 tab.subl 11/28/17 [Rx] Ondansetron [Zofran] 4 mg IVP Q6HR PRN vial 11/28/17 [Rx] amLODIPine [Norvasc] 5 mg PO HS 30 Days #30 tablet 11/28/17 [Rx] Allergy/AdvReac Type Severity Reaction Status Date / Time No Known Allergies Allergy Verified 08/19/16 20:01 All Systems PM: A 10-system review of systems was performed and is negative for pertinent findings except as documented above in the HPI. - Constitutional Vitals: Temp Pulse Resp BP Pulse Ox 98.4 F 71 18 187/87 99 11/23/18 11:40 11/23/18 11:40 11/23/18 11:40 11/23/18 11:40 11/23/18 11:40 General appearance: Present: A&O X 3, no acute distress Exam: As above - Head Head exam: Present: normocephalic - Eye Eye exam: Present: normal appearance - ENT ENT exam: Present: mucous membranes moist - Respiratory Respiratory exam: Present: CTAB. Absent: accessory muscle use, rales, rhonchi, wheezes - Cardiovascular Cardiovascular exam: Present: RRR, +S1, +S2. Absent: diastolic murmur, gallop, rubs, systolic murmur - GI/Abdominal GI/Abdominal exam: Present: normal bowel sounds, soft, no peritoneal signs. Absent: distended, tenderness - Extremities Exam Extremities exam: Absent: pedal edema - Neurological Exam Neurological exam: Present: oriented X3 - Psychiatric Psychiatric exam: Present: normal mood - Skin Skin exam: Present: normal color Internal Med - H&P Results - Labs CBC & Chem 7: 11/23/18 09:05 11/23/18 09:05 Labs: Short CBC 11/23/18 Range/Units 09:05 WBC 9.4 (4.3-11.1) K/mcL Hgb 16.0 H (11.5-15.4) g/dL Hct 48.9 H (35.3-44.9) % Plt Count 189 (140-400) K/mcL Neutrophils # 7.1 (1.6-8.9) K/mcL BMP 11/23/18 09:05 Sodium 139 Potassium 3.9 Chloride 99 Carbon Dioxide 34 H BUN 18 Creatinine 0.80 Glucose 110 H Calcium 10.2 Cardiac Enzymes 11/23/18 Range/Units 09:05 Troponin I < 0.03 (< 0.04) ng/mL Urine 11/23/18 Range/Units 09:12 Urine Color Yellow (Yellow) Urine Clarity Clear (Clear) Urine pH 7.0 (5.0-8.0) pH Units Ur Specific [place] < 1.005 L (1.010-1.025) Urine Protein Negative (Neg-Trace) mg/dL Urine Glucose (UA) Normal (Normal) mg/dL - Impressions ITS Impressions Chest X-Ray 11/23/18 08:48 IMPRESSION: No evidence of acute cardiopulmonary disease. D/ / Mara Oliveira MD / Mara Oliveira MD Interpreting Provider: Mara Oliveira MD - Assessment and plan (1) Chest pain, rule out acute myocardial infarction Current Visit: No Status: Acute Assessment and plan: Patient presents due to chest pressure with significant history of coronary artery disease. EKG reviewed by myself showed no ST/T-wave changes and first set of troponins negative. Echocardiogram in 2017 showed LVEF of 65% with normal LV chamber size and function. Will trend serial troponins and monitor on telemetry. Will also order echocardiogram. (2) CAD (coronary artery disease) Current Visit: No Status: Chronic Assessment and plan: Past medical history significant for coronary arterial disease with left heart catheterization 08/2016 PTCA/CECILIA to mLAD, 50% pRCA lesion Patient is admitted on 11/26/17 for chest pain and a Left heart catheterization on 11/27/17 did not warrant any intervention; cardiology with recommendations to start Imdur 30 mg daily in addition to continuing beta juan, statin and aspi rin. Qualifiers: Coronary Disease-Associated Artery/Lesion type: [place] artery [place] vs. transplanted heart: [place] heart Associated angina: angina presence unspecified Qualified Code(s): I25.10 - Atherosclerotic heart disease of [place] coronary artery without angina pectoris (3) PAF (paroxysmal atrial fibrillation) Current Visit: No Status: Acute Assessment and plan: Rate controlled; continue beta juan and oral anticoagulation with Xarelto (4) DVT prophylaxis Current Visit: No Status: Acute Assessment and plan: On Xarelto as above - Time Spent With Patient Total time spent is greater than 50% in coordination of care (as documented) at patient's floor/unit and/or counseling patient:
[2018-11-23] MEDS ORDERED: Naloxone 0.4 MG/ML INJ IVP PRN (12:13)
[2018-11-23] MEDS ORDERED: Fluticasone Propionate Nasal 50 MCG/SPRAY BOTTLE NS PRN (18:47)
[2018-11-23] MEDS ORDERED: Acetaminophen 325 MG TABLET PO ONE (19:26)
[2018-11-23] MEDS ORDERED: Melatonin 3 MG TABLET PO SCH (21:00)
[2018-11-23] MEDS ORDERED: *HR* Morphine 2 MG/ML SYRINGE IVP ONE (21:25)
[2018-11-24 03:19] LABS: Basophils % 0.5 %; Eosinophils # 0.2 K/mcL (0.0-0.6); Eosinophils % 2.3 %; Hematocrit 44.3 % (35.3-44.9); Hemoglobin 14.5 g/dL (11.5-15.4); Immature Granulocytes % 0.1 % (0-4); Lymphocytes # 2.3 K/mcL (0.6-4.6); Lymphocytes % 31.2 %; Mean Corpuscular HGB Conc 32.7 g/dL (31.6-35.5); Mean Corpuscular Hemoglobin 28.8 pg (28.0-33.3); Mean Corpuscular Volume 87.9 fL (83.0-100.0); Mean Platelet Volume 10.9 fL (9.4-12.4); Monocytes # 0.7 K/mcL (0.0-1.3); Neutrophils # 4.3 K/mcL (1.6-8.9); Platelet Count 179 K/mcL (140-400); Red Blood Count 5.04 M/mcL (3.82-4.97); Red Cell Distribution Width 13.4 % (11.5-14.5); Segmented Neutrophils % 56.9 %
[2018-11-24 03:38] LABS: BUN/Creatinine Ratio 26 (6-26); Blood Urea Nitrogen 25 mg/dL (8-23); Calcium 9.3 mg/dL (8.6-10.3); Carbon Dioxide 33 mEq/L (23-29); Chloride 103 mEq/L (98-107); Glucose 112 mg/dL (70-105); Osmolality,Calculated 293 (280-300); Potassium 4.2 mEq/L (3.5-5.1); Sodium 139 mEq/L (136-145); eGFR For Non-African Americans 55 (> 60)
[2018-11-24 07:26] VITALS: BP 143/68
[2018-11-24] MEDS ORDERED: Regadenoson 0.4 MG/5 ML SYRINGE IVP ONE ×2 (12:04→12:08)
--- NOTE | 2018-11-24 12:16 | Discharge Summary ---
<Aron Azul P - Last Filed: 11/24/18 13:53> - NOTES TO OUTPATIENT PROVIDER Notes to Outpatient Provider: *The patient will follow-up with primary care provider within a week. * The patient will follow-up with her sr. consultant within a month. Orders not resulted at time of discharge: Pending orders 11/24/18 10:15 NM lucia perf SPECT multi [NM] Routine Date of Encounter: 11/24/18 Time of Encounter: 08:45 - Discharge Diagnosis (1) Chest pain Priority: Primary Status: Acute Qualifiers: Chest pain type: unspecified Qualified Code(s): R07.9 - Chest pain, unspecified (2) CAD (coronary artery disease) Priority: Primary Status: Chronic (3) Hypertension Priority: Secondary Status: Chronic Qualifiers: Hypertension type: essential hypertension Qualified Code(s): I10 - Essential (primary) hypertension (4) Atrial fibrillation Priority: Secondary Status: Chronic Qualifiers: Atrial fibrillation type: unspecified Qualified Code(s): I48.91 - Unspecified atrial fibrillation (5) DVT prophylaxis Priority: Primary Status: Suspected Hospital course: Ms. Pena is a 78 year old female with past medical history of coronary arterial disease with left heart catheterization 08/2016 PTCA/CECILIA to mLAD, 50% pRCA lesion, and proximal atrial fibrillation on oral anticoagulation on Xarelto who presented to the Ed on 11/23/18 for severe substernal chest pressure with left shoulder pain that radiated down her left arm ,the pain was intermittent lasting for a few minutes . She was here on 11/26/17 for chest pain and her Left heart catheterization on 11/27/17 did not warrant any cardiac intervention; cardiology recommendationed to start Imdur 30 mg daily in addition to continuing metoprolol ,statin and aspirin.Echocardiogram done in 2017 showed LVEF of 65% with normal LV chamber size and function. Chest x-ray done in ED did not show any acute pathology. EKG at ED showed sinus rhythm with heart rate approximately 75 bpm, no ST elevation or depression. Serial troponin was negative. The patient was admitted for cardiac monitoring and further evaluation. We did new echocardiogram today that showed :LVEF 70-75%, hyperdynamic LV. Mild concentric left ventricular hypertrophy. Mild left ventricular diastolic dysfunction. Cardiac stress test done today showed:No ischemia or infarct on perfusion study. Normal perfusion study. Stress LVEF >70%, Pharmacologic stress ECG non-diagnostic for ischemia. Today patient is hemodynamically stable, her chest pain has been improved much, she does not have a new complaint. We are discharging her and she will follow- up with her primary care provider within a week and her sr. consultant within a month. - Time Spent with Patient Total time spent providing and/or coordinating discharge services: - Discharge Medications Home Medications: Ascorbate Calcium [Vitamin C] 500 mg PO DAILY 05/03/16 [History] Fluticasone Propionate Nasal [Flonase] 50 mcg NS DAILY PRN 05/03/16 [History] Multivit-Min/FA/Lycopen/Lutein [Adults 50+ Multivitamin Tablet] 1 tab PO DAILY 05/03/16 [History] Richardson-3/Dha/Epa/Fish Oil [Fish Oil 1,000 mg Softgel] 1 cap PO BID 05/03/16 [History] Vitamin E 200 unit PO DAILY 05/03/16 [History] Metoprolol [Lopressor] 25 mg PO BID 08/20/16 [History] Aspirin [Lo-Dose Aspirin EC] 81 mg PO QPM 06/09/17 [History] Melatonin [Melatin] 3 mg PO HS 06/09/17 [History] Rivaroxaban [Xarelto] 20 mg PO DAILY 06/09/17 [History] Biotin 1 mg PO DAILY 11/26/17 [History] Cholecalciferol (Vitamin D3) [Vitamin D3] 2,000 unit PO DAILY 11/26/17 [History] amLODIPine [Norvasc] 5 mg PO QPM 11/23/18 [History] Allergies/Adverse Reactions: Allergy/AdvReac Type Severity Reaction Status Date / Time nitroglycerin AdvReac " PASS OUT" Verified 11/23/18 17:46 prednisone AdvReac See Verified 11/23/18 17:46 Comments STEROIDS AdvReac See Uncoded 11/23/18 17:46 Comments Date of admission: 11/23/18 10:38 Primary care physician: Davi Lyon DO - Constitutional Vitals: Temp Pulse Resp BP Pulse Ox 97.7 F 71 16 143/68 92 11/24/18 07:25 11/24/18 07:25 11/24/18 07:25 11/24/18 07:25 11/24/18 07:25 General appearance: Present: A&O X 3, no acute distress, answers questions appropriately Exam: Gen: Alert, awake , Oriented to time,place and person Chest: Diminished BS b/l, No crackles, No rales, No wheezing Heart: S1S2+ RRR No Murmurs Abd: Soft, NT, BS + No organomegaly Ext: No edema, pulses are palpable, no tenderness Neuro: No focal neuro deficits Psych: Normal mood Skin: No rash - Patient Status Disposition: Home, Self-Care Condition: Good Functional capacity at discharge: independent ambulation Overall status at discharge: patient is progressing back to baseline - Discharge Instructions Follow Up With: Davi Lyon DO [Primary Care Provider] - 12/02/18 12:00 pm Forms: ED Satisfaction Letter - Diet and Activity Activity: resume usual activities as tolerated Diet: low fat, low cholesterol <ThalElías garduno - Last Filed: 11/24/18 15:06> Orders not resulted at time of discharge: Pending orders 11/24/18 10:15 NM lucia perf SPECT multi [NM] Routine Date of Encounter: 11/24/18 - Discharge Diagnosis (1) DVT prophylaxis Status: Suspected (2) Chest pain, rule out acute myocardial infarction Status: Acute (3) PAF (paroxysmal atrial fibrillation) Status: Acute (4) CAD (coronary artery disease) Status: Chronic Qualifiers: Coronary Disease-Associated Artery/Lesion type: [place] artery [place] vs. transplanted heart: [place] heart Associated angina: angina presence unspecified Qualified Code(s): I25.10 - Atherosclerotic heart disease of [place] coronary artery without angina pectoris Hospital course: Ms. Pena is a 78 year old female - Time Spent with Patient Total time spent providing and/or coordinating discharge services: Date of admission: 11/23/18 10:38 Primary care physician: Davi Lyon DO - Constitutional Vitals: Temp Pulse Resp BP Pulse Ox 97.7 F 71 16 143/68 92 11/24/18 07:25 11/24/18 07:25 11/24/18 07:25 11/24/18 07:25 11/24/18 07:25 - Attending Attestation I examined this patient and my medical decision-making was reviewed with the Resident Physician Dr. Azul. I agree with the documented findings, disposition and treatment plan as described except to the extent set forth below. Ms. Pena is a 78 year old female with past medical history of coronary arterial disease with left heart catheterization 08/2016 PTCA/CECILIA to mLAD, 50% pRCA lesion, repeat LHC on 11/21 showed stable two vessel CAD no significant change from previous cath and paroxysmal atrial fibrillation on oral anticoagulation Xarelto who presented to the ED on 11/23/18 for severe substernal chest pressure with left shoulder pain that radiated down her left arm ,the pain was intermittent lasting for few minutes. Pt was admitted in the hospital and placed her on shaker repairer. All her troponin were negative and EKG did not show any acute ischemic changes. Her nuclear stress came back is negative for ischemia. So will d/c her home in stable condition today. Gen: A, A, O x 3 Chest: Diminished BS b/l No crackles No rales Heart: S1S2+ RRR No murmurs
[2018-11-24] MEDS ORDERED: *HR* Rivaroxaban 10 MG TABLET PO SCH (17:00)
[2018-11-24] MEDS ORDERED: amLODIPine 5 MG TABLET PO SCH (18:00)
[2018-11-24] MEDS ORDERED: Aspirin Enteric Coated 81 MG Tablet PO SCH (18:00)
--- NOTE | 2018-11-24 18:01 | Electrocardiograph Report ---
[address] [address] Test Date: 2018-11-23 Pat Name: Shauna Pena Department: EXAM1 Room: 3B37 Gender: F Rapid [employer]: : 1940 Requested By: Renetta Jennings Order Number: [id number] Reading MD: Linden Montgomery Measurements Intervals [place] Rate: 66 P: -8 AK: 142 QRS: -33 QRSD: 100 T: 33 QT: 401 QTc: 421 Interpretive Statements Sinus rhythm Low voltage, precordial leads Left ventricular hypertrophy Electronically Signed On 11-24-2018 17:59:57 EST by Linden Montgomery
== END 2018-11-24 15:48 | disposition home or self-care (01) ==
LOC: 3BNU 08:38 → EMEROOARM 08:38 → SUATTDRO 10:38 → 3BNU 12:56
PROVIDERS: ADMIT Hospitalist; ATTEND Family Medicine

== ENCOUNTER 2022-03-31 23:59 | Observation (INO) ==
[2022-04-01] MEDS ORDERED: 0.9 % Sodium Chloride 1,000 ML IV ONE (00:29)
[2022-04-01 00:32] LABS: Basophils % 0.4 %; Eosinophils # 0.1 K/mcL (0.0-0.6); Eosinophils % 1.4 %; Hematocrit 45.4 % (35.3-44.9); Hemoglobin 14.8 g/dL (11.5-15.4); Immature Granulocytes % 0.1 % (0-4); Lymphocytes # 2.3 K/mcL (0.6-4.6); Lymphocytes % 29.7 %; Mean Corpuscular HGB Conc 32.6 g/dL (31.6-35.5); Mean Corpuscular Hemoglobin 29.3 pg (28.0-33.3); Mean Corpuscular Volume 89.9 fL (83.0-100.0); Mean Platelet Volume 10.9 fL (9.4-12.4); Monocytes # 0.8 K/mcL (0.0-1.3); Monocytes % 9.7 %; Neutrophils # 4.6 K/mcL (1.6-8.9); Platelet Count 189 K/mcL (140-400); Red Blood Count 5.05 M/mcL (3.82-4.97); Red Cell Distribution Width 13.2 % (11.5-14.5); Segmented Neutrophils % 58.7 %; White Blood Count 7.8 K/mcL (4.3-11.1)
[2022-04-01 00:37] LABS: Prothrombin Time 22.5 Seconds (9.4-12.1)
[2022-04-01 00:40] LABS: Activated Partial Thrombo Time 52.6 Seconds (26.0-36.0)
[2022-04-01 00:49] LABS: BUN/Creatinine Ratio 24 (6-26); Blood Urea Nitrogen 19 mg/dL (8-23); Calcium 10.2 mg/dL (8.6-10.3); Carbon Dioxide 28 mEq/L (23-29); Chloride 106 mEq/L (98-107); Glucose 108 mg/dL (70-105); Osmolality,Calculated 295 (280-300); Potassium 3.8 mEq/L (3.5-5.1); Sodium 141 mEq/L (136-145); eGFR For African Americans > 60 (> 60); eGFR For Non-African Americans > 60 (> 60)
[2022-04-01 00:50] LABS: Troponin I < 0.03 ng/mL (< 0.04)
[2022-04-01 01:18] LABS: Thyroid Stimulating Hormone 7.464 mcIU/mL (0.340-5.600)
[2022-04-01 01:42] LABS: Influenza A PCR Negative (Negative); Influenza B PCR Negative (Negative); Resp. Syncytial Virus PCR Negative (Negative)
[2022-04-01 01:45] LABS: SARS-CoV-2 by PCR (In House) Negative (Negative)
[2022-04-01 01:52] LABS: D-Dimer < 215 ng/mLFEU (0-500)
[2022-04-01] MEDS ORDERED: Aspirin 325 MG TABLET PO ONE (01:56)
[2022-04-01] MEDS ORDERED: Ondansetron ODT 4 MG TAB.RAPDIS SL PRN (02:40)
[2022-04-01] MEDS ORDERED: Melatonin 3 MG TABLET PO PRN (02:40)
[2022-04-01] MEDS ORDERED: Naloxone 0.4 MG/ML INJ IVP PRN (02:40)
[2022-04-01 04:07] LABS: Magnesium 2.2 mg/dL (1.6-2.6)
[2022-04-01] MEDS ORDERED: Perflutren Lipid Microsphere 1.3 ML in 0.9 % Sodium Chloride 8.7 ML IVP PRN (05:58)
[2022-04-01] MEDS: Levothyroxine 25 MCG TABLET PO SCH ×2 (07:02→10:43)
[2022-04-01] MEDS ORDERED: *HR* Rivaroxaban 10 MG TABLET PO SCH ×2 (09:00→17:00)
[2022-04-01] MEDS ORDERED: Regadenoson 0.4 MG/5 ML SYRINGE IVP ONE (10:12)
[2022-04-01] MEDS ORDERED: Aspirin Enteric Coated 81 MG Tablet PO SCH (18:00)
[2022-04-01] MEDS ORDERED: Acetaminophen 325 MG TABLET PO ONE (20:39)
[2022-04-02] MEDS: Levothyroxine 25 MCG TABLET PO SCH (05:29)
[2022-04-02 11:52] VITALS: BP 147/73; PULSE 61; TEMP 97.6; O2SAT 93
== END 2022-04-02 12:54 | disposition home or self-care (01) ==
LOC: EMEROOARM 23:59 → 2ANU 23:59
PROVIDERS: ADMIT Internal Medicine; ATTEND Internal Medicine